=== PATIENT | male | born 1940 | race Two or more races ===

== ENCOUNTER → 2017-01-25 | Outpatient (CLI) | payer MEDICARE, OTHER ==
[~2017-01-25] VITALS: Ht 167.6 cm; Wt 70.8 kg
[~2017-01-25] MED LIST: BENAZEPRIL HCL10 MG ORAL; BENAZEPRIL HCL40 MG ORAL; BISACODYL5 MG ORAL; LANSOPRAZOLE30 MG ORAL; OMEPRAZOLE40 M1 ORAL; PPI; PROSTATE MED; TAMSULOSIN HCL0.4 MG ORAL
[2017-01-25 11:43] VITALS: BP 135/77
--- NOTE | 2017-01-25 19:19 | Consultation ---
DATE OF CONSULTATION: 01/25/2017 CONSULTING PHYSICIAN: Holden Dexter M.D. REFERRING PHYSICIAN: Sonu Bass M.D. CHIEF COMPLAINT: Weight loss and abdominal pain. HISTORY OF PRESENT ILLNESS: This is a very pleasant 76-year-old male, who was referred to us for evaluation of 10 pounds of weight loss over a year, abdominal pain after eating, and dark stools. No prior history of endoscopy or colonoscopy. PAST MEDICAL HISTORY: 1. Hypertension. 2. BPH. PAST SURGICAL HISTORY: Hernia repair. MEDICATIONS: Please see medication reconciliation list. SOCIAL HISTORY: The patient denies any tobacco, alcohol, or drug abuse. FAMILY HISTORY: Noncontributory. ALLERGIES: No known drug allergies. REVIEW OF SYSTEMS: A 10-point review of systems was performed and pertinent positives in history of present illness. PHYSICAL EXAMINATION: VITAL SIGNS: Temperature 98.4, blood pressure is 135/77, pulse 63, and respirations 20. Height is 5 feet 6 inches and weight 156. HEENT: Normocephalic and atraumatic. Sclerae anicteric. NECK: Supple. No evidence of lymphadenopathy. CARDIOVASCULAR: Regular rate and rhythm. Plus S1 and S2. LUNGS: Clear to auscultation bilaterally. ABDOMEN: Positive bowel sounds. Soft. Minimal tenderness to palpation in the epigastric area. No rebound. No guarding. No peritoneal sign. EXTREMITIES: No cyanosis. No edema. LABORATORY DATA: Labs not available. ASSESSMENT AND PLAN: The patient is a [id number] with epigastric abdominal pain, dark stools, and weight loss. No prior history of endoscopy or colonoscopy. Plan is to perform endoscopy and colonoscopy this coming Tuesday. If those studies negative, we will do laboratory work on the procedure day and also consider santillan CT. I want to thank Dr. Bass for this kind referral. Holden Dexter M.D. DR: JOHN JOB#: [id number] CC: Sonu Bass M.D.; Fax#: [phone]
== END | disposition home or self-care (01) ==
LOC: PAN 11:27
DX: R10.9 Unspecified abdominal pain (principal); R63.4 Abnormal weight loss
CPT/HCPCS: 99201

== ENCOUNTER → 2017-01-28 | Day surgery (SDC) | payer MEDICARE, OTHER ==
[~2017-01-28] VITALS: Ht 165.1 cm; Wt 70.8 kg
[2017-01-28] VITALS (11 sets, daily range): BP systolic 130–169; BP diastolic 70–81
[~2017-01-28] MED LIST changes: +LR 1000ml ONE; +Lidocaine 1% MPF 10mg/ml 5ml ONE; +Propofol 10mg/ml 20ml IV ONE; +ePHEDrine 50mg/ml Inj ONE
--- NOTE | 2017-01-28 08:00 | Short Stay Surgery H&P ---
History of Present Illness History of Present Illness Chief Complaint see dictation HPI Quincy Henley is a 76 year old male who was admitted on for Abdominal Pain, Weight Loss Patient History Allergies: Coded Allergies: No Known Allergies (Unverified , 01/25/17) PAST MEDICAL HISTORY: Past Surgeries: Social History: Medication History Scheduled Benazepril Hcl* (Benazepril Hcl*), Unknown Dose ORAL DAILY, (Reported) Benazepril Hcl* (Benazepril Hcl*), 40 MG ORAL DAILY, (Reported) Bisacodyl* (Dulcolax*), 5 MG ORAL DAILY, (Reported) Omeprazole (Omeprazole), 40 MG ORAL DAILY, (Reported) Tamsulosin Hcl (Tamsulosin Hcl*), 0.4 MG ORAL BEDTIME, (Reported) Physical Exam Vital Signs Last Vital Signs Date Time Temp Pulse Resp B/P Pulse Ox O2 Delivery O2 Flow Rate FiO2 01/28/17 07:38 97.9 83 20 169/81 99 Room Air Plan Attestation Are the patient's medical conditions optimized for surgery? EARL TUBBS Jan 28, 2017 08:00
--- NOTE | 2017-01-28 08:00 | Pre-Procedure Note/Attestation ---
Pre-Procedure Note/Attestation Complete Prior to Procedure Planned Procedure: not applicable Procedure Narrative: egd/colon Indications for Procedure Pre-Operative Diagnosis: wt loss Attestation I attest that I discussed the nature of the procedure; its benefits; risks and complications; and alternatives (and the risks and benefits of such alternatives ), prior to the procedure, with the patient (or the patient's legal food products sales representative). I attest that, if there was a reasonable possibility of needing a blood transfusion, the patient (or the patient's legal food products sales representative) was given the [facility] standardized written summary, pursuant to the Campbell Severo Blood Safety Act ([place] Health and Safety Code # 1645, as amended). I attest that I re-evaluated the patient just prior to the surgery and that there has been no change in the patient's H&P, except as documented below: EARL TUBBS Jan 28, 2017 08:00
--- NOTE | 2017-01-28 08:19 | Anethesia Preoperative Eval ---
Anesthesia Pre-op PMH/ROS General Date of Evaluation: Jan 28, 2017 Time of Evaluation: 08:00 Anesthesiologist: marjorie ASA Score: ASA 2 Mallampati Score Class I : Soft palate, uvula, fauces, pillars visible Class II: Soft palate, uvula, fauces visible Class III: Soft palate, base of uvula visible Class IV: Only hard plate visible Mallampati Classification: Class II Anesthesia History: none Family History: no anesthesia problems Allergies: Coded Allergies: No Known Allergies (Unverified , 01/25/17) Medications: see eMAR Past Medical History Cardiovascular: Reports: HTN Pulmonary: Denies: COPD, BURAK, asthma, other Gastrointestinal/Genitourinary: Reports: GERD Neurologic/Psychiatric: Denies: CVA, TIA, dementia, depression/anxiety, other Endocrine: Denies: DM, hypothyroidism, other, steroids HEENT: Denies: ALTURAS (L), ALTURAS (R), cataract (L), cataract (R), glaucoma, other Hematology/Immune: Denies: DVT, anemia, bleeding disorder, other PMH Narrative: weight loss PSxH Narrative: hernia repair Anesthesia Pre-op Phys. Exam Physician Exam Last Vital Signs Date Time Temp Pulse Resp B/P Pulse Ox O2 Delivery O2 Flow Rate FiO2 01/28/17 07:38 97.9 83 20 169/81 99 Room Air Constitutional: NAD Neurologic: CN 2-12 intact Cardiovascular: RRR, other - PAC Respiratory: CTA Gastrointestinal: S/NT/ND Airway Exam Mallampati Classification 3 Mallampati Score: Class II MO: full ROM: full Dentures: no lower, no upper Anesthesia Pre-op A/P Studies Pre-op Studies: EKG - SR with pa Risk Assessment & Plan Plan: mac Status Change Before Surgery: No Pre-Antibiotics Drug: none [place],NBA TOBACCO DIPPER Jan 28, 2017 08:19
--- NOTE | 2017-01-28 08:29 | Endoscopy Procedure Note ---
Endoscopy Procedure Note Indication for Procedure: wt loss Procedures Performed: EGD, colonoscopy Operative Findings/Diagnosis: gastritis, HH 2 polyps Specimen: yes Pt Tolerated Procedure Well: Yes Estimated Blood Loss: none Anesthesiologist: jesus Anesthesia: MAC Implant(s) used?: No 50 yrs or older w/o bx or poly: No 10yrs. F/U not recommended: Yes If not recommended, why?: Above average risk 10 yrs. F/U needed: Yes 18 years or older w/prev. colo: No EARL TUBBS Jan 28, 2017 08:29
--- NOTE | 2017-01-28 08:41 | Immediate Post-Op Evaluation ---
Immediate Post-Op Evalulation Immediate Post-Op Evalulation Procedure: EGD/Colonoscopy Date of Evaluation: Jan 28, 2017 Time of Evaluation: 08:38 IV Fluids: 500 Blood Pressure Systolic: 131 Blood Pressure Diastolic: 70 Pulse Rate: 86 Respiratory Rate: 14 O2 Sat by Pulse Oximetry: 100 Temperature (Fahrenheit): 97.5 Nausea: No Vomiting: No Complications none Patient Status: awake, reacts, patent Hydration Status: adequate Drug: none NBA ALCANTARA CRNA Jan 28, 2017 08:41
--- NOTE | 2017-01-28 09:11 | 48 Hour Post Anesthesia Eval ---
Post Anesthesia Evaluation Procedure: EGD/Colonoscopy Date of Evaluation: Jan 28, 2017 Time of Evaluation: 09:11 Blood Pressure Systolic: 132 0: 87 Pulse Rate: 74 O2 Sat by Pulse Oximetry: 99 Airway: patent Nausea: No Vomiting: No Hydration Status: adequate Mental Status/LOC: patient returned to baseline Post-Anesthesia Complications: none Follow-up care needed: N/A NBA ALCANTARA CRNA Jan 28, 2017 09:11
[2017-01-28 10:10] LABS: THYROID STIMULATING HORMONE 2.89 uIU/mL (0.300-4.500)
--- NOTE | 2017-01-28 13:54 | Diagnostic Imaging Report ---
Indication: Abdominal pain Technique: Continuous helical transaxial imaging of the abdomen and pelvis was obtained from the lung bases to the pubic symphysis during intravenous contrast administration. Coronal 2-D reformats were also obtained. Study obtained in a Siemens sensation [address] Total Dose length Product (DLP): [address] Dose Index Volume (CTDIvol): 17, 10 mGy Comparison: None Findings: Lung bases are clear. There is a hiatal hernia present. Liver and spleen unremarkable. Gallbladder is unremarkable. No adrenal mass seen. Pancreas is unremarkable. 5 cm and 2.5 cm cysts noted within the right kidney at the upper pole. Arterial vascular calcifications involving aorta noted. Urinary bladder is unremarkable. Prostate is enlarged measures about 4.8 x 5.3 x 6.0 cm. There is a right renal hernia containing fat. The appendix is seen and appears normal. Note that the cecum is mobile and displaced superomedially. The appendix is therefore seen at about the level the right kidney. Mild anterolisthesis L4 and 5 demonstrated. There is narrowing of intervertebral discs and accompanying endplate osteophyte and vacuum formation. Hypertrophied facet joints also demonstrated.. Impression: Irregularity and enlargement of the prostate gland. Clinical correlation recommended. Small right inguinal hernia containing fat. Normal appendix Note there is superior and medial location of the cecum, sign of partial malrotation. Atherosclerotic vascular disease Cysts within the right kidney. Spondylosis as described above. The CT scanner at [facility] is accredited by the [employer] and the scans are performed using protocols designed to limit radiation exposure to as low as reasonably achievable to attain images of sufficient resolution adequate for diagnostic evaluation.
--- NOTE | 2017-01-28 16:28 | Procedure Note ---
DATE OF PROCEDURE: 01/28/2017 SURGEON: Holden Dexter M.D. PROCEDURE: Upper endoscopy with biopsy and colonoscopy with biopsy with snare polypectomy. ANESTHESIOLOGIST: Zo Mathis CRNA. INSTRUMENT: Olympus adult flexible upper endoscope and colonoscope. INDICATION: Weight loss. REASON FOR PROCEDURE: The procedure, risks, benefits, and possible consequences, including hemorrhage, aspiration, perforation and infection, and alternative treatments, were explained to the patient/legal guardian by Dr. Holden Dexter and the patient/legal guardian understood and accepted these risks. DESCRIPTION OF PROCEDURE: After informed consent was obtained and the patient was adequately sedated, Olympus upper endoscope was advanced from mouth into the second portion of the duodenum and retroflexion was performed in the stomach. The patient had evidence of small hiatal hernia. In the stomach, there was diffuse gastritis. Random biopsy from antrum was obtained to rule out H. pylori infection. At this time, the upper endoscope was retrieved and the patient was turned over for colonoscopy. First, a rectal exam performed, which showed positive for large internal hemorrhoids. Then, the scope was advanced from the rectum into the cecum documented by appendiceal orifice, ileocecal valve, and right upper quadrant palpation. Quality of prep was very poor in the cecum. We had a hard time. We had to wash so many times to get the cecum visible. There was one sessile polyp in the cecum measured roughly about 5 mm removed with the cold snare polypectomy technique. There was another diminutive polyp in the transverse colon, removed with the cold biopsy forceps technique. There was no obvious mass, tumor, or any other pathology seen. Retroflexion of rectum showed evidence of relatively large internal hemorrhoids. SUMMARY OF FINDINGS: 1. Gastritis, status post biopsy. 2. Small hiatal hernia. 3. Two colonic polyps removed, see above for details. 4. Internal hemorrhoids. RECOMMENDATIONS: 1. Follow up biopsy results and treat accordingly. 2. The patient will need a CT of the chest, abdomen, and pelvis to rule out for evaluation of cause of weight loss. 3. We are going to send tumor markers today and thyroid panel today. I want to thank Dr. Sonu Bass for this kind referral. Holden Rosales Dexter DR: SASHA JOB#: [id number] CC: Rosales Judd
--- NOTE | 2017-02-01 00:15 | Cardiology Report ---
APPROVED REPORT EKG Measurement Heart [id number] Atrial fibrillation Abnormal ECG
== END | disposition home or self-care (01) ==
LOC: GAS 06:34
DX: R10.9 Unspecified abdominal pain (principal); R63.4 Abnormal weight loss; D12.0 Benign neoplasm of cecum; D12.3 Benign neoplasm of transverse colon; K64.8 Other hemorrhoids; K29.50 Unspecified chronic gastritis without bleeding; B96.81 Helicobacter pylori [H. pylori] as the cause of diseases classified elsewhere; K44.9 Diaphragmatic hernia without obstruction or gangrene; I10 Essential (primary) hypertension; K21.9 Gastro-esophageal reflux disease without esophagitis
CPT/HCPCS: 36415; 43239; 45380; 45385; 74177; 82150; 82378; 83690; 84439; 84443; 86301; 93005; J2704; J7120; Q9967; 94003; 94150

== ENCOUNTER 2017-01-30 06:29 | Emergency (ER) | payer MEDICARE, OTHER ==
[~2017-01-30] VITALS: Ht 162.6 cm; Wt 70.8 kg
[~2017-01-30 06:29] MED LIST changes: -LANSOPRAZOLE30 MG ORAL; -LR 1000ml ONE; -Lidocaine 1% MPF 10mg/ml 5ml ONE; -Propofol 10mg/ml 20ml IV ONE; -ePHEDrine 50mg/ml Inj ONE
[2017-01-30 06:48] VITALS: BP 160/71
--- NOTE | 2017-01-30 07:08 | Emergency Room Report ---
History of Present Illness General Chief Complaint: Abdominal Pain Source: Patient, Family Member Present Illness HPI 76 YOM walk-in patient with 1 week constant central abd pain. No relief with "antacid." Cant sleep at night. No assoc fever/chills, nausea/vomiting. Associated with weight loss, diarrhea. Assoc with 1 month dysuria w/out polyuria. Had colonoscopy and endocscopy [address] Dexter - review of EMR shows results of "gastritis, polyps." No other noted significant findings. Denies foreign travel, sick contacts. Appetite ok. Allergies: Coded Allergies: No Known Allergies (Unverified , 01/25/17) Patient History Past Medical History: HTN Past Surgical History: other - left hernia repair 5 years ago Pertinent Family History: none Social History: Denies: alcohol use, drug use, smoking Immunizations: UTD Nursing Documentation-PMH Hx Cardiac Problems: Yes Hx Hypertension: Yes Hx Cancer: No Hx Gastrointestinal Problems: No Hx Neurological Problems: No Review of Systems All Other Systems: negative except mentioned in HPI Physical Exam Vital Signs Date Time Temp Pulse Resp B/P Pulse Ox O2 Delivery O2 Flow Rate FiO2 01/30/17 06:35 97.9 78 16 145/76 97 Room Air Sp02 EP Interpretation: reviewed, normal General Appearance: normal inspection, well appearing, no apparent distress, alert, GCS 15, non-toxic, other - well appearing elderly gentleman Head: normocephalic, atraumatic Eyes: bilateral eye EOMI, bilateral eye PERRL ENT: normal ENT inspection, hearing grossly normal, normal voice Neck: normal inspection, full range of motion, supple, no bony tend Respiratory: normal inspection, lungs clear, normal breath sounds, no respiratory distress, no retraction, no wheezing Cardiovascular #1: regular rate, rhythm, no edema Gastrointestinal: normal inspection, normal bowel sounds, non tender, soft, no mass, no organomegaly, non-distended, no guarding, no hernia, no pulsatile mass , no rebound Genitourinary: no CVA tenderness Musculoskeletal: normal inspection, back normal, normal range of motion, Mitul' s Sign negative Neurologic: normal inspection, alert, oriented x3, responsive, territory manager III-XII nml as tested, motor strength/tone normal, speech normal Psychiatric: normal inspection, judgement/insight normal, mood/affect normal Skin: normal inspection, normal color, no rash Lymphatic: normal inspection Medical Decision Making Diagnostic Impression: Primary Impression: Abdominal pain Qualified Codes: R10.33 - Periumbilical pain Additional Impressions: Gastritis Qualified Codes: K29.50 - Unspecified chronic gastritis without bleeding ASAF (acute kidney injury) ER Course 76 YOM with 1 week central abd pain. VSS. Afebrile. Likely gastritis given recent endoscopy/colonoscopy Does not appear septic Unlikely ACS given 1 week but will check ECG, troponin Will do basic labs, tx for gastritis with IV H2 graham If no improvement, will consider CT, GI Cx EKG Diagnostic Results Rate: other - Atrial fib without RVR Rhythm Strip Diag. Results EP Interpretation: yes Rate: 75 Rhythm: no PVC's, no ectopy Reevaluation Time: 10:18 Last Vital Signs Date Time Temp Pulse Resp B/P Pulse Ox O2 Delivery O2 Flow Rate FiO2 01/30/17 06:48 97.9 89 15 160/71 99 Room Air Status: improved Reevaluation Impression Labs: No leuks. H&H stable. Lipase normal. Mild ASAF. UA negative for UTI ECG atrial fib without RVR. Troponin 0. CT c/w gastritis. No other acute abd/pelvic pathology Likely known gastritis. Feels better after medication. Hydrated IVF for mild ASAF Will give stronger PPI rx and recommend GI/PMD followup DC home Disposition: HOME, SELF-CARE SOFÍA SCHMID M.D. Jan 30, 2017 07:07
[2017-01-30] MEDS ORDERED: Famotidine 20 MG/ 2ML VIAL IVP ONE (07:15)
[2017-01-30] MEDS ORDERED: Mylanta II UD 30ml ORAL ONE (07:15)
[2017-01-30 07:46] LABS: BASOPHILS % (AUTO) 0.9 % (0.0-2.0); EOSINOPHILS % (AUTO) 2.4 % (0.0-3.0); LYMPHOCYTES % (AUTO) 42.5 % (20.0-45.0); MEAN CORPUSCULAR HEMOGLOBIN 20.2 PG (27.0-31.0); MEAN CORPUSCULAR HGB CONC 29.8 G/DL (32.0-36.0); MEAN CORPUSCULAR VOLUME 68 FL (80-99); MEAN PLATELET VOLUME 9.1 FL (6.5-10.1); MONOCYTES % (AUTO) 8.1 % (1.0-10.0); NEUTROPHILS % (AUTO) 46.1 % (45.0-75.0); PLATELET COUNT 299 K/UL (150-450); RED BLOOD COUNT 6.17 M/UL (4.70-6.10); RED CELL DISTRIBUTION WIDTH 13.6 % (11.6-14.8); WHITE BLOOD COUNT 5.3 K/UL (4.8-10.8)
[2017-01-30 08:03] LABS: ALANINE AMINOTRANSFERASE 14 U/L (3-41); ALBUMIN/GLOBULIN RATIO 1.3 (1.0-2.7); ANION GAP 18 (5-15); ASPARTATE AMINO TRANSFERASE 48 U/L (5-40); CALCIUM 10.1 mg/dL (8.6-10.2); CARBON DIOXIDE 25 mEQ/L (20-30); CHLORIDE 98 mEQ/L (98-107); CREATININE 1.4 mg/dL (0.7-1.2); HEMOLYSIS 54; LIPASE 50 U/L (< 60); POTASSIUM 4.5 mEQ/L (3.4-4.9); SODIUM 141 mEQ/L (135-145); TOTAL PROTEIN 7.6 g/dL (6.6-8.7)
[2017-01-30 08:07] LABS: TROPONIN I < 0.30 ng/mL (<=0.30)
[2017-01-30 09:10] LABS: APPEARANCE,URINE CLEAR; KETONES,URINE NEGATIVE (NEGATIVE); LEUKOCYTE ESTERASE ,URINE NEGATIVE (NEGATIVE); NITRITE,URINE NEGATIVE (NEGATIVE); PH,URINE 6 (4.5-8.0); PROTEIN,URINE 2+ (NEGATIVE); UROBILINOGEN,URINE NORMAL MG/DL (0.0-1.0)
[2017-01-30 09:34] LABS: BACTERIA,URINE OCCASIONAL /HPF; RBC,URINE 0-2 /HPF (0 - 0); SQUAMOUS EPITHELIAL CELL,UR OCCASIONAL /LPF (NONE/OCC); WBC,URINE 0-2 /HPF (0 - 0)
--- NOTE | 2017-01-30 10:18 | Diagnostic Imaging Report ---
Indication: Abdominal pain. Comparison: 01/28/17. Technique: Utilizing a multislice CT scanner, a CT of the abdomen and pelvis was performed without intravenous contrast. All CT scans at this facility use dose modulation, iterative reconstruction, and/or weight based dosing when appropriate to reduce radiation dose to as low as reasonably achievable. CTDIvol (mGy): 12 DLP (mGy-cm): 594 Findings: Lack of intravenous contrast limits evaluation of the visceral and vascular structures. The visualized lung bases exhibit mild atelectasis or scarring The liver is unremarkable. The gallbladder is unremarkable. The pancreas, spleen and adrenal glands are unremarkable. The stomach is decompressed and not optimally evaluated but exhibits moderate wall thickening which may reflect sequela of reported gastritis. No calculus is identified within either kidney, along the expected course of the ureters or within the urinary bladder. There is no evidence of hydronephrosis or asymmetric perirenal inflammatory change. Cysts in the right upper kidney measuring up to 4.7 cm in size noted. The urinary bladder exhibits moderate wall thickening. The prostate is moderately enlarged, protruding into the floor of the urinary bladder. Chronic bladder outlet obstruction or cystitis should be considered. The visualized bowel are grossly unremarkable. There is no evidence of obstruction. There is no extraluminal gas or fluid. Normal appendix. There are no enlarged lymph nodes. There is calcified atherosclerotic disease of the the abdominal aorta. Mild multilevel thoracolumbar spondylosis noted. Impression: 1. No evidence of acute intra-abdominal or pelvic pathology. 2. Decompressed stomach with apparent wall thickening which may reflect sequela of reported gastritis. 3. Large right renal cysts. No hydronephrosis. 4. Enlarged prostate gland. Bladder wall thickening. Correlate with physical exam findings and PSA levels. Consider chronic bladder outlet obstruction or cystitis.
[2017-01-30] MEDS ORDERED: LANSOPRAZOLE30 MG ORAL (10:22)
[2017-01-30 10:46] VITALS: BP 144/78
[2017-01-30 10:49] VITALS: BP 144/78
--- NOTE | 2017-02-01 00:02 | Cardiology Report ---
APPROVED REPORT EKG Measurement Heart [id number] Atrial fibrillation with occasional Nonspecific ST abnormality Prolonged QT Abnormal ECG
== END 2017-01-30 10:49 | disposition home or self-care (01) ==
LOC: EMR 07:07
DX: R10.33 Periumbilical pain (principal); K29.70 Gastritis, unspecified, without bleeding; N17.9 Acute kidney failure, unspecified; I10 Essential (primary) hypertension
CPT/HCPCS: 36415; 74176; 80053; 81003; 83690; 84484; 85025; 93005; 96374; 99284; S0028

== ENCOUNTER → 2017-02-01 | Outpatient (CLI) | payer MEDICARE, OTHER ==
[~2017-02-01] MED LIST changes: +LANSOPRAZOLE30 MG ORAL
--- NOTE | 2017-02-01 11:03 | GI Progress Note ---
Assessment/Plan Problems: (1) Abdominal pain ICD Codes: R10.9 - Unspecified abdominal pain SNOMED: 12372391 (2) S/P colonoscopic polypectomy ICD Codes: Z98.890 - Other specified postprocedural states SNOMED: 71289287, 116739672, 094238908, 794079063243 (3) Constipated ICD Codes: K59.00 - Constipation, unspecified SNOMED: 73236861 Status: stable Status Narrative Seen with Dr. Dexter. Assessment/Plan EGD/colonoscopy reviewed with patient. APCT reviewed >> No evidence of acute intra-abdominal or pelvic pathology. Rx miralax + colace RTC prn The patient was seen and examined at bedside and all new and available data was reviewed in the patients chart. I agree with the above findings, impression and plan. (Patient seen earlier today. Signature stamp does not reflect patient encounter time.). -Holden Dexter MD Subjective Subjective abdominal pain, slight improvement LLQ admitted to ER 2 days ago at [facility] Objective T 97.6 BP 124/79 P 78 99 RA General Appearance: no apparent distress, alert, overweight Cardiovascular: normal rate Respiratory/Chest: normal breath sounds, no respiratory distress Abdominal Exam: normal bowel sounds, non tender, soft Extremities: normal range of motion Objective Endoscopy Procedure Note Indication for Procedure: wt loss Procedures Performed: EGD, colonoscopy Operative Findings/Diagnosis: gastritis, HH 2 polyps HOLDEN DEXTER - Jan 28, 2017 08:29 Soumya Mcclendon N.PJean-Pierre Feb 01, 2017 11:03 HOLDEN DEXTER Feb 04, 2017 09:42
[2017-02-03 09:03] VITALS: BP 129/79
== END | disposition home or self-care (01) ==
LOC: PAN 10:11
DX: R10.9 Unspecified abdominal pain (principal); K59.00 Constipation, unspecified; Z98.890 Other specified postprocedural states; K63.5 Polyp of colon; K29.70 Gastritis, unspecified, without bleeding
CPT/HCPCS: 99211

== ENCOUNTER → 2017-02-22 | Outpatient (CLI) | payer MEDICARE, OTHER ==
[~2017-02-22] MED LIST changes: +COLACE100 MG ORAL; +MIRALAX17 G2 ORAL
[2017-02-22 11:24] VITALS: BP_SYST 111; BP_SYST 131; BP_DIAS 61; BP_DIAS 75
--- NOTE | 2017-02-23 15:26 | GI Progress Note ---
Assessment/Plan Problems: (1) H. pylori infection ICD Codes: A04.8 - Other specified bacterial intestinal infections (2) Weight loss ICD Codes: R63.4 - Abnormal weight loss SNOMED: 89983324, 964714173 (3) Malnutrition ICD Codes: E46 - Unspecified protein-calorie malnutrition SNOMED: 7618506 (4) Abdominal pain ICD Codes: R10.9 - Unspecified abdominal pain SNOMED: 80272207 (5) S/P colonoscopic polypectomy ICD Codes: Z98.890 - Other specified postprocedural states SNOMED: 04310643, 122253713, 150763404, 723652627881 (6) Constipated ICD Codes: K59.00 - Constipation, unspecified SNOMED: 24788147 Status: stable Status Narrative Seen with Dr. Dexter. Assessment/Plan EGD/colonoscopy reviewed with patient on previous admission. APCT reviewed >> No evidence of acute intra-abdominal or pelvic pathology. H Pylori positive >> Tx with amoxicillin + biaxin + omeprazole cont miralax + colace RTC x 3 months for retest repeat colon x 3 years Subjective Subjective abdominal pain constipation >> colace, miralax, dulcolax not helping weight loss Objective T 97.2 BP 131/75 P 89 General Appearance: no apparent distress, alert Cardiovascular: normal rate Respiratory/Chest: normal breath sounds, no respiratory distress Abdominal Exam: normal bowel sounds, non tender, soft Extremities: normal range of motion Objective Endoscopy Procedure Note Indication for Procedure: wt loss Procedures Performed: EGD, colonoscopy Operative Findings/Diagnosis: gastritis, HH 2 polyps EARL DEXTER - Jan 28, 2017 08:29 Soumya Mcclendon NJean-PierrePJeanP-ierre Feb 23, 2017 15:26
== END | disposition home or self-care (01) ==
LOC: PAN 11:07
DX: A04.8 Other specified bacterial intestinal infections (principal); R63.4 Abnormal weight loss; E46 Unspecified protein-calorie malnutrition; R10.9 Unspecified abdominal pain; Z98.890 Other specified postprocedural states; K59.00 Constipation, unspecified; Z86.010 Personal history of colon polyps
CPT/HCPCS: 99211

== ENCOUNTER 2017-03-23 14:24 | Outpatient (CLI) | payer MEDICARE, OTHER ==
--- NOTE | 2017-03-23 15:00 | GI Progress Note ---
Assessment/Plan Problems: (1) Constipated ICD Codes: K59.00 - Constipation, unspecified SNOMED: 79926520 (2) H. pylori infection ICD Codes: A04.8 - Other specified bacterial intestinal infections (3) Abdominal pain ICD Codes: R10.9 - Unspecified abdominal pain SNOMED: 50951075 (4) Malnutrition ICD Codes: E46 - Unspecified protein-calorie malnutrition SNOMED: 9336458 (5) Weight loss ICD Codes: R63.4 - Abnormal weight loss SNOMED: 90316012, 459391655 (6) S/P colonoscopic polypectomy ICD Codes: Z98.890 - Other specified postprocedural states SNOMED: 45117999, 050967153, 487794028, 944082932766 Status: stable Status Narrative Seen with Dr. Dexter. Assessment/Plan EGD/COLONOSCOPY SUMMARY OF FINDINGS: 1. Gastritis, status post biopsy. 2. Small hiatal hernia. 3. Two colonic polyps removed, see above for details. 4. Internal hemorrhoids. 5. H. Pylori positive 6. Tumor markers and thyroid panel >> unremarkable Service Date: 01/30/17 Procedure: CT Abdomen Pelvis WO Contrast Indication: Abdominal pain. Impression: 1. No evidence of acute intra-abdominal or pelvic pathology. 2. Decompressed stomach with apparent wall thickening which may reflect sequela of reported gastritis. 3. Large right renal cysts. No hydronephrosis. 4. Enlarged prostate gland. Bladder wall thickening. Correlate with physical exam findings and PSA levels. Consider chronic bladder outlet obstruction or cystitis. RECOMMENDATIONS: Defer HP treatment for now given Abx has interaction with Amiodarone which the patient is currently taking. Rx Amitiza RTC x 3 months, we will consider HP tx at this time. Subjective Gastrointestinal/Abdominal: Reports: no symptoms Objective T 97.8 BP 136/83 P 75 95 RA General Appearance: no apparent distress, alert Cardiovascular: normal rate Respiratory/Chest: normal breath sounds, no respiratory distress Abdominal Exam: normal bowel sounds, non tender, soft Extremities: normal range of motion Soumya Mcclendon N.PJean-Pierre March 23, 2017 15:00
[2017-03-23] MEDS ORDERED: ASPIR 8181 MG ORAL (15:03)
[2017-03-23] MEDS ORDERED: XARELTO10 MG ORAL (15:03)
[2017-03-23] MEDS ORDERED: LISINOPRIL2.5 MG ORAL (15:03)
[2017-03-23] MEDS ORDERED: PLAVIX75 MG ORAL (15:03)
[2017-03-23] MEDS ORDERED: AMIODARONE HCL400 M1 ORAL (15:03)
[2017-03-23] MEDS ORDERED: PROTONIX40 MG ORAL (15:03)
== END 2017-03-23 15:00 | disposition home or self-care (01) ==
LOC: PAN 14:24
DX: K59.00 Constipation, unspecified (principal); A04.8 Other specified bacterial intestinal infections; R10.9 Unspecified abdominal pain; E46 Unspecified protein-calorie malnutrition; R63.4 Abnormal weight loss; Z98.890 Other specified postprocedural states; Z86.010 Personal history of colon polyps
CPT/HCPCS: 99211

== ENCOUNTER 2017-05-27 11:04 | Outpatient (CLI) | payer MEDICARE, OTHER ==
[~2017-05-27 11:04] MED LIST changes: +AMIODARONE HCL400 M1 ORAL; +ASPIR 8181 MG ORAL; +LISINOPRIL2.5 MG ORAL; +PLAVIX75 MG ORAL; +PROTONIX40 MG ORAL; +XARELTO10 MG ORAL
--- NOTE | 2017-05-27 16:10 | Diagnostic Imaging Report ---
Indication: Cough Technique: 2 views of the chest Comparison: none. Findings: Lungs and pleural spaces are clear. Heart size is normal. Bones are unremarkable.. Impression: No acute process
== END 2017-05-27 12:04 | disposition home or self-care (01) ==
LOC: RAD 11:04
DX: Z01.818 Encounter for other preprocedural examination (principal); I10 Essential (primary) hypertension; R05 Cough
CPT/HCPCS: 71020

== ENCOUNTER 2017-08-12 09:38 | Inpatient (IN) | payer MEDICARE, OTHER ==
[~2017-08-12] VITALS: Ht 165.1 cm; Wt 68.0 kg
[2017-08-12 10:06] VITALS: BP 162/77
--- NOTE | 2017-08-12 10:12 | Emergency Room Report ---
History of Present Illness General Chief Complaint: Gastrointestinal Bleed Source: Patient Present Illness HPI 76-year-old male history of CAD on Plavix, history of A. fib currently in sinus rhythm on several to, hypertension, presenting with rectal bleeding that started 10 minutes prior to arrival, bright red blood per rectum, moderate amount. Slight lightheadedness. Slight abdominal pain that has resolved. No nausea or vomiting. Patient had recent endoscopy and colonoscopy performed this past January which showed polyps and gastritis. Denies fever or chills. No recent travel Allergies: Coded Allergies: No Known Allergies (Unverified , 01/25/17) Patient History Past Medical History: see triage record Past Surgical History: none Pertinent Family History: none Reviewed Nursing Documentation: PMH: Agreed, PSxH: Agreed Nursing Documentation-PMH Hx Cardiac Problems: Yes Hx Hypertension: Yes Hx Cancer: No Hx Gastrointestinal Problems: Yes Hx Neurological Problems: No Review of Systems All Other Systems: negative except mentioned in HPI Physical Exam Vital Signs Date Time Temp Pulse Resp B/P (MAP) Pulse Ox O2 Delivery O2 Flow Rate FiO2 08/12/17 09:40 97.9 94 20 190/95 99 Room Air Sp02 EP Interpretation: reviewed, normal General Appearance: normal inspection, well appearing, no apparent distress, alert, GCS 15, non-toxic, other - , Cooperative not in acute distress Head: normocephalic, atraumatic Eyes: bilateral eye normal inspection, bilateral eye PERRL, bilateral eye EOMI ENT: normal ENT inspection, normal pharynx, normal voice, moist mucus membranes Neck: normal inspection, full range of motion, supple Respiratory: normal inspection, lungs clear, normal breath sounds, no respiratory distress, no retraction, no wheezing, speaking full sentences, chest symmetrical Cardiovascular #1: normal inspection, regular rate, rhythm, no edema, normal capillary refill Cardiovascular #2: 2+ radial (R), 2+ radial (L) Gastrointestinal: soft, non-distended, no guarding, other - Soft nontender all quadrants abdomen Rectal: other - +BRBPR, blood in rectal vault, no brisk bleeding Genitourinary: no CVA tenderness Musculoskeletal: normal inspection, back normal, normal range of motion, non- tender Neurologic: normal inspection, alert, oriented x3, responsive, motor strength/ tone normal, sensory intact, normal gait, speech normal Psychiatric: normal inspection, judgement/insight normal, memory normal Skin: normal inspection, normal color, no rash, warm/dry, well hydrated, normal turgor Medical Decision Making Diagnostic Impression: Primary Impression: Gastrointestinal hemorrhage ER Course 76-year-old male with GI bleed, lower On anticoagulation DDX: Diverticulosis, diverticulitis, hemorrhoids, AVM, mass Plan: Obtain labs, ua, EKG, coags At this time abdomen is very soft nontender will hold imaging for now ER course: Patient has been monitored during ED stay, no tachycardia no hypotension, current blood pressure is 162/77 review of charts - last h/h in february 09.5 hgb today is 11.5 trop noted to be 0.1 however likely due to demand ischemia, will not heparinize patient at this time due to GIB has had 1 bloody BM in ED states rectal pain but minimal abd pain, abd is nontender on exam VS remain normal and stable. admit to tele Disposition: Patient is to be admitted to telemetry D/W hospitalist Patient was signed out to Dr Pedraza, who has accepted patient for admission. Attempted call to GI but no call back Please note that this Emergency Department Report was dictated using [employer] software, occasionally this can lead to erroneous entry secondary to interpretation by the dictation equipment. EKG Diagnostic Results EP Interpretation: Yes Rate: normal Rhythm: NSR ST Segments: No acute changes ASA given to patient: No Rhythm Strip EP Interpretation: Yes Rate: 66 Rhythm: NSR, no PVCs, no ectopy Laboratory Tests Test 08/12/17 09:55 08/12/17 10:40 White Blood Count 6.8 K/UL (4.8-10.8) Red Blood Count 5.63 M/UL (4.70-6.10) Hemoglobin 11.5 G/DL (14.2-18.0) L Hematocrit 38.9 % (42.0-52.0) L Mean Corpuscular Volume 69 FL (80-99) L Mean Corpuscular Hemoglobin 20.5 PG (27.0-31.0) L Mean Corpuscular Hemoglobin Concent 29.6 G/DL (32.0-36.0) L Red Cell Distribution Width 13.2 % (11.6-14.8) Platelet Count 310 K/UL (150-450) Mean Platelet Volume 7.4 FL (6.5-10.1) Neutrophils (%) (Auto) 45.8 % (45.0-75.0) Lymphocytes (%) (Auto) 42.3 % (20.0-45.0) Monocytes (%) (Auto) 6.8 % (1.0-10.0) Eosinophils (%) (Auto) 4.2 % (0.0-3.0) H Basophils (%) (Auto) 0.9 % (0.0-2.0) Prothrombin Time 9.8 SEC (9.30-11.50) Prothrombin Time INR 0.9 (0.9-1.1) PTT 25 SEC (23-33) Sodium Level 142 MMOL/L (136-145) Potassium Level 4.7 MMOL/L (3.5-5.1) Chloride Level 107 MMOL/L (98-107) Carbon Dioxide Level 27 MMOL/L (21-32) Anion Gap 8 (5-15) Blood Urea Nitrogen 24 mg/dL (7-18) H Creatinine 1.6 MG/DL (0.55-1.30) H Estimate Glomerular Filtration Rate mL/min (>60) Glucose Level 103 MG/DL (74-106) Calcium Level 9.3 MG/DL (8.5-10.1) Total Bilirubin 0.5 MG/DL (0.2-1.0) Aspartate Amino Transferase (AST) 51 U/L (15-37) H Alanine Aminotransferase (ALT) 27 U/L (12-78) Alkaline Phosphatase 73 U/L (46-116) Troponin I 0.153 ng/mL (0.000-0.056) Total Protein 7.5 G/DL (6.4-8.2) Albumin 3.8 G/DL (3.4-5.0) Globulin 3.7 g/dL Albumin/Globulin Ratio 1.0 (1.0-2.7) Lipase 197 U/L (73-393) Last Vital Signs Date Time Temp Pulse Resp B/P (MAP) Pulse Ox O2 Delivery O2 Flow Rate FiO2 08/12/17 09:40 97.9 94 20 190/95 99 Room Air Disposition: ADMITTED INPATIENT Condition: Serious Tripp Marquez M.D. Aug 12, 2017 10:12
[2017-08-12 10:34] LABS: BASOPHILS % (AUTO) 0.9 % (0.0-2.0); EOSINOPHILS % (AUTO) 4.2 % (0.0-3.0); LYMPHOCYTES % (AUTO) 42.3 % (20.0-45.0); MEAN CORPUSCULAR HEMOGLOBIN 20.5 PG (27.0-31.0); MEAN CORPUSCULAR HGB CONC 29.6 G/DL (32.0-36.0); MEAN CORPUSCULAR VOLUME 69 FL (80-99); MEAN PLATELET VOLUME 7.4 FL (6.5-10.1); MONOCYTES % (AUTO) 6.8 % (1.0-10.0); NEUTROPHILS % (AUTO) 45.8 % (45.0-75.0); PLATELET COUNT 310 K/UL (150-450); RED BLOOD COUNT 5.63 M/UL (4.70-6.10); RED CELL DISTRIBUTION WIDTH 13.2 % (11.6-14.8); WHITE BLOOD COUNT 6.8 K/UL (4.8-10.8)
[2017-08-12 10:46] LABS: INR 0.9 (0.9-1.1); PROTHROMBIN TIME 9.8 SEC (9.30-11.50)
[2017-08-12 11:02] LABS: ALANINE AMINOTRANSFERASE 27 U/L (12-78); ANION GAP 8 (5-15); ASPARTATE AMINO TRANSFERASE 51 U/L (15-37); CALCIUM 9.3 MG/DL (8.5-10.1); CARBON DIOXIDE 27 MMOL/L (21-32); CHLORIDE 107 MMOL/L (98-107); CREATININE 1.6 MG/DL (0.55-1.30); LIPASE 197 U/L (73-393); POTASSIUM 4.7 MMOL/L (3.5-5.1); SODIUM 142 MMOL/L (136-145); TOTAL PROTEIN 7.5 G/DL (6.4-8.2)
[2017-08-12 12:46] VITALS: BP 157/68
[2017-08-12] MEDS ORDERED: Morphine Sulfate 2mg/ml Inj IVP PRN (14:45)
[2017-08-12] MEDS ORDERED: Nitroglycerin Subl 0.4mg tab SL PRN (14:45)
[2017-08-12] MEDS ORDERED: Miralax 17gm pkt ORAL PRN (14:45)
[2017-08-12] MEDS ORDERED: Mylanta II UD 30ml ORAL PRN (14:45)
--- NOTE | 2017-08-12 14:49 | History and Physical ---
History of Present Illness General Date patient seen: Aug 12, 2017 Reason for Hospitalization: Gastrointestinal Bleed Present Illness HPI 76-year-old male history of hypertension, CAD on Plavix, history of A. fib currently in sinus rhythm , presenting with rectal bleeding that started 10 minutes prior to arrival, bright red blood per rectum, moderate amount. Slight lightheadedness. Slight abdominal pain that has resolved. No nausea or vomiting. Patient had recent endoscopy and colonoscopy performed this past January which showed polyps and gastritis. Allergies: Coded Allergies: No Known Allergies (Unverified , 01/25/17) Medication History Scheduled Amiodarone Hcl* (Amiodarone Hcl*), 200 MG ORAL EVERY 12 HOURS, (Reported) Aspirin* (Aspir 81*), 81 MG ORAL DAILY, (Reported) Clopidogrel Bisulfate* (Plavix*), 75 MG ORAL DAILY, (Reported) Lisinopril* (Lisinopril*), 5 MG ORAL DAILY, (Reported) Pantoprazole* (Protonix*), 40 MG ORAL DAILY, (Reported) Rivaroxaban (Xarelto*), 10 MG ORAL DAILY, (Reported) Tamsulosin Hcl (Tamsulosin Hcl*), 0.4 MG ORAL BEDTIME, (Reported) Patient History Healthcare decision maker Resuscitation status Advanced Directive on File Past Medical/Surgical History Past Medical/Surgical History: (1) HTN (hypertension) Review of Systems Constitutional: Reports: no symptoms Eye: Reports: no symptoms ENT: Reports: no symptoms Gastrointestinal: Reports: no symptoms Genitourinary: Reports: no symptoms Physical Exam General Appearance: WD/WN Lines, tubes and drains: peripheral HEENT: normocephalic, atraumatic Neck: non-tender, normal alignment Respiratory/Chest: chest wall non-tender, lungs clear, normal breath sounds Cardiovascular/Chest: normal peripheral pulses, normal rate Last 24 Hour Vital Signs Date Time Temp Pulse Resp B/P (MAP) Pulse Ox O2 Delivery O2 Flow Rate FiO2 08/12/17 12:46 98.2 62 19 157/68 100 Room Air 08/12/17 10:06 97.9 66 19 162/77 100 Room Air 08/12/17 09:40 97.9 94 20 190/95 99 Room Air Laboratory Tests Test 08/12/17 09:55 08/12/17 10:40 White Blood Count 6.8 K/UL (4.8-10.8) Red Blood Count 5.63 M/UL (4.70-6.10) Hemoglobin 11.5 G/DL (14.2-18.0) L Hematocrit 38.9 % (42.0-52.0) L Mean Corpuscular Volume 69 FL (80-99) L Mean Corpuscular Hemoglobin 20.5 PG (27.0-31.0) L Mean Corpuscular Hemoglobin Concent 29.6 G/DL (32.0-36.0) L Red Cell Distribution Width 13.2 % (11.6-14.8) Platelet Count 310 K/UL (150-450) Mean Platelet Volume 7.4 FL (6.5-10.1) Neutrophils (%) (Auto) 45.8 % (45.0-75.0) Lymphocytes (%) (Auto) 42.3 % (20.0-45.0) Monocytes (%) (Auto) 6.8 % (1.0-10.0) Eosinophils (%) (Auto) 4.2 % (0.0-3.0) H Basophils (%) (Auto) 0.9 % (0.0-2.0) Prothrombin Time 9.8 SEC (9.30-11.50) Prothromb Time International Ratio 0.9 (0.9-1.1) Activated Partial Thromboplast Time 25 SEC (23-33) Sodium Level 142 MMOL/L (136-145) Potassium Level 4.7 MMOL/L (3.5-5.1) Chloride Level 107 MMOL/L (98-107) Carbon Dioxide Level 27 MMOL/L (21-32) Anion Gap 8 (5-15) Blood Urea Nitrogen 24 mg/dL (7-18) H Creatinine 1.6 MG/DL (0.55-1.30) H Estimat Glomerular Filtration Rate mL/min (>60) Glucose Level 103 MG/DL (74-106) Calcium Level 9.3 MG/DL (8.5-10.1) Total Bilirubin 0.5 MG/DL (0.2-1.0) Aspartate Amino Transf (AST/SGOT) 51 U/L (15-37) H Alanine Aminotransferase (ALT/SGPT) 27 U/L (12-78) Alkaline Phosphatase 73 U/L (46-116) Troponin I 0.153 ng/mL (0.000-0.056) Total Protein 7.5 G/DL (6.4-8.2) Albumin 3.8 G/DL (3.4-5.0) Globulin 3.7 g/dL Albumin/Globulin Ratio 1.0 (1.0-2.7) Lipase 197 U/L (73-393) Height (Feet): 5 Height (Inches): 5.00 Weight (Pounds): 150 Medications Current Medications Medications (Trade) Dose Ordered Sig/Timothy Route PRN Reason Start Time Stop Time Status Last Admin Dose Admin Acetaminophen (Tylenol) 650 mg Q4H PRN ORAL fever 08/12/17 14:45 09/11/17 14:44 UNV Al Hydroxide/Mg Hydroxide (Mylanta II) 30 ml Q6H PRN ORAL dyspepsia 08/12/17 14:45 09/11/17 14:44 UNV Amiodarone HCl (Cordarone) 200 mg EVERY 12 HOURS ORAL 08/12/17 21:00 09/11/17 20:59 UNV Dextrose (Dextrose 50%) STAT PRN IV Hypoglycemia 08/12/17 14:45 09/11/17 14:44 UNV Dextrose/Sodium Chloride 1,000 ml @ 100 mls/hr Q10H IV 08/12/17 14:44 09/11/17 14:43 UNV Diphenhydramine HCl (Benadryl) 25 mg Q6H PRN ORAL Itching/Pruritis 08/12/17 14:45 09/11/17 14:44 UNV Lisinopril (Zestril) 5 mg DAILY ORAL 08/13/17 09:00 09/12/17 08:59 UNV Morphine Sulfate (Morphine Sulfate) 2 mg EVERY 4 HOURS PRN IVP severe Pain (Pain Scale 7-10) 08/12/17 14:45 08/19/17 14:44 UNV Nitroglycerin (Ntg) 0.4 mg Q5M X 3 DOSES PRN SL Prn Chest Pain 08/12/17 14:45 09/11/17 14:44 UNV Ondansetron HCl (Zofran) 4 mg Q6H PRN IVP Nausea & Vomiting 08/12/17 14:45 09/11/17 14:44 UNV Phytonadione 10 mg/Dextrose 56 ml @ 110 mls/hr ONCE ONCE IVPB 08/12/17 14:45 08/12/17 15:15 UNV Polyethylene Glycol (Miralax) 17 gm HSPRN PRN ORAL Constipation 08/12/17 14:45 09/11/17 14:44 UNV Tamsulosin HCl (Flomax) 0.4 mg BEDTIME ORAL 08/12/17 21:00 09/11/17 20:59 UNV Temazepam (Restoril) 15 mg HSPRN PRN ORAL Insomnia 08/12/17 14:45 08/19/17 14:44 UNV Assessment/Plan Problem List: (1) Gastrointestinal hemorrhage ICD Codes: K92.2 - Gastrointestinal hemorrhage, unspecified SNOMED: 60337064 (2) HTN (hypertension) ICD Codes: I10 - Essential (primary) hypertension SNOMED: 03206568 Assessment/Plan NPO IV fluid GI evaluation symptomatic treatment check h/h dvt prophylaxis Cardio to see as well. YOLIE HECTOR Aug 12, 2017 14:49
[2017-08-12 16:00] VITALS: BP 137/70
[2017-08-12] MEDS ORDERED: Phytonadione 10 MG in D5W 55 ML IVPB ONE (16:00)
[2017-08-12] MEDS: D5NS 1,000 ML IV SCH (16:32)
--- NOTE | 2017-08-12 17:15 | Cardiology Progress Note ---
Assessment/Plan Assessment/Plan [id number] brbpr cad s/p stetn in lad x2 (02/2017)\ paf htn renal insuf abn cardiac enzyme serial cbc nd cardaic enzymes and ekg hodl antiplt agent and xarelto until determine extent of bleeding if no sig bleeding shannon need to resume antiplt and xarelt tomrrow Objective Last 24 Hour Vital Signs Date Time Temp Pulse Resp B/P (MAP) Pulse Ox O2 Delivery O2 Flow Rate FiO2 08/12/17 16:00 98.8 20 137/70 96 Room Air 08/12/17 12:46 98.2 62 19 157/68 100 Room Air 08/12/17 10:06 97.9 66 19 162/77 100 Room Air 08/12/17 09:40 97.9 94 20 190/95 99 Room Air Laboratory Tests Test 08/12/17 09:55 08/12/17 10:40 White Blood Count 6.8 K/UL (4.8-10.8) Red Blood Count 5.63 M/UL (4.70-6.10) Hemoglobin 11.5 G/DL (14.2-18.0) L Hematocrit 38.9 % (42.0-52.0) L Mean Corpuscular Volume 69 FL (80-99) L Mean Corpuscular Hemoglobin 20.5 PG (27.0-31.0) L Mean Corpuscular Hemoglobin Concent 29.6 G/DL (32.0-36.0) L Red Cell Distribution Width 13.2 % (11.6-14.8) Platelet Count 310 K/UL (150-450) Mean Platelet Volume 7.4 FL (6.5-10.1) Neutrophils (%) (Auto) 45.8 % (45.0-75.0) Lymphocytes (%) (Auto) 42.3 % (20.0-45.0) Monocytes (%) (Auto) 6.8 % (1.0-10.0) Eosinophils (%) (Auto) 4.2 % (0.0-3.0) H Basophils (%) (Auto) 0.9 % (0.0-2.0) Prothrombin Time 9.8 SEC (9.30-11.50) Prothromb Time International Ratio 0.9 (0.9-1.1) Activated Partial Thromboplast Time 25 SEC (23-33) Sodium Level 142 MMOL/L (136-145) Potassium Level 4.7 MMOL/L (3.5-5.1) Chloride Level 107 MMOL/L (98-107) Carbon Dioxide Level 27 MMOL/L (21-32) Anion Gap 8 (5-15) Blood Urea Nitrogen 24 mg/dL (7-18) H Creatinine 1.6 MG/DL (0.55-1.30) H Estimat Glomerular Filtration Rate mL/min (>60) Glucose Level 103 MG/DL (74-106) Calcium Level 9.3 MG/DL (8.5-10.1) Total Bilirubin 0.5 MG/DL (0.2-1.0) Aspartate Amino Transf (AST/SGOT) 51 U/L (15-37) H Alanine Aminotransferase (ALT/SGPT) 27 U/L (12-78) Alkaline Phosphatase 73 U/L (46-116) Troponin I 0.153 ng/mL (0.000-0.056) Total Protein 7.5 G/DL (6.4-8.2) Albumin 3.8 G/DL (3.4-5.0) Globulin 3.7 g/dL Albumin/Globulin Ratio 1.0 (1.0-2.7) Lipase 197 U/L (73-393) MARISABEL MANTILLA Aug 12, 2017 17:15
[2017-08-12 18:51] LABS: THYROID STIMULATING HORMONE 11.035 uiU/mL (0.360-3.740)
[2017-08-12 20:00] VITALS: BP 155/69
[2017-08-12] MEDS: Amiodarone 200mg tab ORAL SCH (22:05)
[2017-08-12] MEDS: Tamsulosin 0.4mg cap ORAL SCH (22:05)
[2017-08-13] VITALS: BP 144/94
[2017-08-13] MEDS: D5NS 1,000 ML IV SCH ×3 (02:28→22:28)
[2017-08-13 04:00] VITALS: BP 133/68
[2017-08-13 08:00] VITALS: BP 149/73
[2017-08-13] MEDS: Lisinopril 2.5mg tab ORAL SCH (09:17)
[2017-08-13] MEDS: Amiodarone 200mg tab ORAL SCH ×2 (09:17→20:57)
[2017-08-13 09:45] LABS: MEAN CORPUSCULAR HEMOGLOBIN 20.8 PG (27.0-31.0); MEAN CORPUSCULAR HGB CONC 29.9 G/DL (32.0-36.0); MEAN CORPUSCULAR VOLUME 69 FL (80-99); MEAN PLATELET VOLUME 7.8 FL (6.5-10.1); PLATELET COUNT 325 K/UL (150-450); RED BLOOD COUNT 5.23 M/UL (4.70-6.10); RED CELL DISTRIBUTION WIDTH 12.9 % (11.6-14.8); WHITE BLOOD COUNT 4.3 K/UL (4.8-10.8)
[2017-08-13 10:09] LABS: PROTHROMBIN TIME 10.3 SEC (9.30-11.50)
[2017-08-13 10:37] LABS: BAND NEUTROPHILS % (MANUAL) 0 % (0-8); BASOPHILS % (MANUAL) 0 % (0-2); EOSINOPHILS % (MANUAL) 5 % (0-3); LYMPHOCYTES % (MANUAL) 30 % (20-45); NEUTROPHILS % (MANUAL) 52 % (45-75); PLATELET ESTIMATE ADEQUATE; PLATELET MORPHOLOGY NORMAL; TOTAL CELLS COUNTED 100
[2017-08-13 10:38] LABS: ACANTHOCYTES 1+; TARGET CELLS 1+
[2017-08-13 10:39] LABS: IRON 83 ug/dL (50-175); TOTAL IRON BINDING CAPACITY 268 ug/dL (250-450)
[2017-08-13 10:45] LABS: ALANINE AMINOTRANSFERASE 22 U/L (12-78); ALBUMIN/GLOBULIN RATIO 0.9 (1.0-2.7); AMYLASE 95 U/L (25-115); ANION GAP 6 (5-15); ASPARTATE AMINO TRANSFERASE 36 U/L (15-37); CARBON DIOXIDE 27 MMOL/L (21-32); CHLORIDE 104 MMOL/L (98-107); CREATININE 1.4 MG/DL (0.55-1.30); LIPASE 192 U/L (73-393); POTASSIUM 4.1 MMOL/L (3.5-5.1); SODIUM 136 MMOL/L (136-145)
[2017-08-13 10:51] LABS: PATH BLOOD SMEAR/OMC SEND TO PATHOLOGIST; RETICULOCYTE COUNT 1.4 % (0.0-2.0)
[2017-08-13 11:11] LABS: CHOLESTEROL 156 MG/DL (< 200); CHOLESTEROL/HDL RATIO 2.4 (3.3-4.4); LACTATE DEHYDROGENASE 179 U/L (81-234)
[2017-08-13 11:17] LABS: ERYTHROCYTE SEDIMENTATION RATE 12 MM/HR (0-20)
[2017-08-13 11:38] LABS: FOLIC ACID 18.1 NG/ML (3.1-17.5)
--- NOTE | 2017-08-13 11:50 | Pulmonology Progress Note ---
Assessment/Plan Assessment/Plan ASSESSMENT GI hemorrhage CAD with hx of stents in LAD x 2 on 02/2017 PAF HTN renal insufficiency likely due to dehydration elevated troponin gastritis anemia of chronic disease subclinical hypothyroidism moderate MR mild pulmonary HTN PLAN OF CARE tele cardio follows initially hold a/PLT and Xarelto per cardio if no further bleeding, can be resumed today will resume serial troponin first up, today with minimal trend down-plateau abnormal troponin -per cardio management patient free from any cardiac symptoms, s/p recent stents continue Amiodarone ECG no acute ischemic changes ECHO with pEF 60 % and RVSP of 42, as well as moderate mitral regurgitation BP management with CCB and ERENDIRA, pain management monitor HH, stable anemia w/up c/w anemia of chronic disease heme eval elevated TSH, T4 WNL, likely subclinical hypothyroidism, no need for thyroid supplement at this time check TFT in 1-2 months venous Duplex BLE creat down to 1.4 with IV hydration, ASAF likely with element of dehydration GI prophylaxis case discussed and evaluated by supervising physician Subjective Allergies: Coded Allergies: No Known Allergies (Unverified , 01/25/17) Subjective had BM earlier today, denies any blood in it HH stable denies CP, SON, palpitations, dizziness SR on tele Objective Last 24 Hour Vital Signs Date Time Temp Pulse Resp B/P (MAP) Pulse Ox O2 Delivery O2 Flow Rate FiO2 08/13/17 09:17 149/73 08/13/17 08:00 62 08/13/17 08:00 97.7 60 21 149/73 96 Room Air 08/13/17 04:00 97.0 62 20 133/68 98 Room Air 08/13/17 04:00 45 08/13/17 00:00 48 08/13/17 00:00 97.5 54 22 144/94 97 Room Air 08/12/17 20:00 58 08/12/17 20:00 97.5 55 22 155/69 96 Room Air 08/12/17 16:00 98.8 20 137/70 96 Room Air 08/12/17 16:00 69 08/12/17 13:33 98.2 62 19 157/68 100 Room Air 08/12/17 12:46 98.2 62 19 157/68 100 Room Air Intake and Output 08/13/17 08/14/17 19:00 07:00 # Bowel Movements 1 General Appearance: WD/WN HEENT: normocephalic, atraumatic, anicteric, mucous membranes moist, PERRL Respiratory/Chest: chest wall non-tender, lungs clear, no respiratory distress , no accessory muscle use Cardiovascular: normal peripheral pulses, normal rate, regular rhythm - SR on tele Abdomen: soft, non tender, non distended Extremities: no edema, pedal pulses normal Neurologic/Psychiatric: no motor/sensory deficits, alert, oriented x 3, responsive Musculoskeletal: normal muscle bulk Laboratory Tests 08/12/17 17:30: Soluble Transferrin Receptor [Pending], Ferritin 271, Troponin I 0.217H, Methylmalonic Acid [Pending], Thyroid Stimulating Hormone (TSH) 11.035H 08/13/17 08:07: Troponin I 0.214H, White Blood Count 4.3L, Red Blood Count 5.23, Hemoglobin 10.9L, Hematocrit 36.3L, Mean Corpuscular Volume 69L, Mean Corpuscular Hemoglobin 20.8L, Mean Corpuscular Hemoglobin Concent 29.9L, Red Cell Distribution Width 12.9, Platelet Count 325, Mean Platelet Volume 7.8, Neutrophils (%) (Auto) , Lymphocytes (%) (Auto) , Monocytes (%) (Auto) , Eosinophils (%) (Auto) , Basophils (%) (Auto) , Differential Total Cells Counted 100, Neutrophils % (Manual) 52, Lymphocytes % (Manual) 30, Monocytes % ( Manual) 13H, Eosinophils % (Manual) 5H, Basophils % (Manual) 0, Band Neutrophils 0, Platelet Estimate Adequate, Platelet Morphology Normal, Target Cells 1+, Acanthocytes 1+, Erythrocyte Sedimentation Rate 12, Reticulocyte Count 1.4, Prothrombin Time 10.3, Prothromb Time International Ratio 1.0, Activated Partial Thromboplast Time 26, Sodium Level 136, Potassium Level 4.1, Chloride Level 104, Carbon Dioxide Level 27, Anion Gap 6, Blood Urea Nitrogen 15 , Creatinine 1.4H, Estimat Glomerular Filtration Rate , Glucose Level 121H, Calcium Level 9.0, Iron Level 83, Total Iron Binding Capacity 268, Percent Iron Saturation 31, Unsaturated Iron Binding 185, Total Bilirubin 0.6, Aspartate Amino Transf (AST/SGOT) 36, Alanine Aminotransferase (ALT/SGPT) 22, Alkaline Phosphatase 62, Lactate Dehydrogenase 179, Total Protein 7.0, Albumin 3.4, Globulin 3.6, Albumin/Globulin Ratio 0.9L, Triglycerides Level 52, Cholesterol Level 156, LDL Cholesterol 179H, HDL Cholesterol 64H, Cholesterol/HDL Ratio 2.4L , Amylase Level 95, Lipase 192, Carcinoembryonic Antigen [Pending], Vitamin B12 Level [Pending], Folate [Pending], Free Thyroxine [Pending] Current Medications Medications (Trade) Dose Ordered Sig/Timothy Route PRN Reason Start Time Stop Time Status Last Admin Dose Admin Acetaminophen (Tylenol) 650 mg Q4H PRN ORAL fever 08/12/17 14:45 09/11/17 14:44 Al Hydroxide/Mg Hydroxide (Mylanta II) 30 ml Q6H PRN ORAL dyspepsia 08/12/17 14:45 09/11/17 14:44 Amiodarone HCl (Cordarone) 200 mg EVERY 12 HOURS ORAL 08/12/17 21:00 09/11/17 20:59 08/13/17 09:17 Dextrose (Dextrose 50%) STAT PRN IV Hypoglycemia 08/12/17 14:45 09/11/17 14:44 Dextrose/Sodium Chloride 1,000 ml @ 100 mls/hr Q10H IV 08/12/17 16:00 09/11/17 15:59 08/13/17 02:28 Diphenhydramine HCl (Benadryl) 25 mg Q6H PRN ORAL Itching/Pruritis 08/12/17 14:45 09/11/17 14:44 Docusate Sodium (Colace) 100 mg TWICE A DAY ORAL 08/13/17 18:00 09/12/17 17:59 Hydrocortisone (Anusol HC) 1 supp TWICE A DAY RECTAL 08/13/17 18:00 09/12/17 17:59 Lisinopril (Zestril) 5 mg DAILY ORAL 08/13/17 09:00 09/12/17 08:59 08/13/17 09:17 Morphine Sulfate (Morphine Sulfate) 2 mg Q4H PRN IVP severe Pain (Pain Scale 7-10) 08/12/17 14:45 08/19/17 14:44 Nitroglycerin (Ntg) 0.4 mg Q5M X 3 DOSES PRN SL Prn Chest Pain 08/12/17 14:45 09/11/17 14:44 Ondansetron HCl (Zofran) 4 mg Q6H PRN IVP Nausea & Vomiting 08/12/17 14:45 09/11/17 14:44 Polyethylene Glycol (Miralax) 17 gm BEDTIME ORAL 08/13/17 21:00 09/12/17 20:59 Ranitidine HCl (Zantac) 150 mg BEDTIME ORAL 08/12/17 21:00 09/11/17 20:59 08/12/17 22:06 Tamsulosin HCl (Flomax) 0.4 mg BEDTIME ORAL 08/12/17 21:00 09/11/17 20:59 08/12/17 22:05 Temazepam (Restoril) 15 mg HSPRN PRN ORAL Insomnia 08/12/17 14:45 08/19/17 14:44 [facility] Aug 13, 2017 11:50
[2017-08-13 12:00] VITALS: BP 125/69
[2017-08-13 16:00] VITALS: BP 127/63
[2017-08-13] MEDS ORDERED: D5NS 1000ml IV ONE (16:35)
[2017-08-13] MEDS: Docusate 100mg cap ORAL SCH (17:47)
[2017-08-13] MEDS: Anusol HC Supp RECTAL SCH (17:47)
[2017-08-13 20:00] VITALS: BP 134/76
[2017-08-13] MEDS: Miralax 17gm pkt ORAL SCH (20:56)
[2017-08-13] MEDS: Tamsulosin 0.4mg cap ORAL SCH (20:57)
--- NOTE | 2017-08-13 22:27 | Cardiology Progress Note ---
Assessment/Plan Assessment/Plan did nto start antiocagulation will monitor Hbn Subjective Subjective the apteint is resting in his bed, alert h is kiswahili speaking denies chest pain or dyspnea had one normal color BM today Objective Last 24 Hour Vital Signs Date Time Temp Pulse Resp B/P (MAP) Pulse Ox O2 Delivery O2 Flow Rate FiO2 08/13/17 20:00 98.4 64 20 134/76 98 Room Air 08/13/17 16:00 58 08/13/17 16:00 98.0 57 20 127/63 98 Room Air 08/13/17 12:00 51 08/13/17 12:00 97.8 55 20 125/69 98 Room Air 08/13/17 09:17 149/73 08/13/17 08:00 62 08/13/17 08:00 97.7 60 21 149/73 96 Room Air 08/13/17 04:00 97.0 62 20 133/68 98 Room Air 08/13/17 04:00 45 08/13/17 00:00 48 08/13/17 00:00 97.5 54 22 144/94 97 Room Air General Appearance: no apparent distress EENT: PERRL/EOMI Neck: supple Rhythm: NSR Cardiovascular: normal rate Respiratory/Chest: lungs clear Abdomen: soft, no mass Extremities: non-tender Intake and Output 08/13/17 08/14/17 19:00 07:00 Intake Total 1698.33 ml Balance 1698.33 ml Intake Oral 600 ml IV Total 1098.33 ml # Voids 3 # Bowel Movements 1 Laboratory Tests Test 08/13/17 08:07 White Blood Count 4.3 K/UL (4.8-10.8) L Red Blood Count 5.23 M/UL (4.70-6.10) Hemoglobin 10.9 G/DL (14.2-18.0) L Hematocrit 36.3 % (42.0-52.0) L Mean Corpuscular Volume 69 FL (80-99) L Mean Corpuscular Hemoglobin 20.8 PG (27.0-31.0) L Mean Corpuscular Hemoglobin Concent 29.9 G/DL (32.0-36.0) L Red Cell Distribution Width 12.9 % (11.6-14.8) Platelet Count 325 K/UL (150-450) Mean Platelet Volume 7.8 FL (6.5-10.1) Neutrophils (%) (Auto) % (45.0-75.0) Lymphocytes (%) (Auto) % (20.0-45.0) Monocytes (%) (Auto) % (1.0-10.0) Eosinophils (%) (Auto) % (0.0-3.0) Basophils (%) (Auto) % (0.0-2.0) Differential Total Cells Counted 100 Neutrophils % (Manual) 52 % (45-75) Lymphocytes % (Manual) 30 % (20-45) Monocytes % (Manual) 13 % (1-10) H Eosinophils % (Manual) 5 % (0-3) H Basophils % (Manual) 0 % (0-2) Band Neutrophils 0 % (0-8) Platelet Estimate Adequate Platelet Morphology Normal Target Cells 1+ Acanthocytes 1+ Erythrocyte Sedimentation Rate 12 MM/HR (0-20) Reticulocyte Count 1.4 % (0.0-2.0) Prothrombin Time 10.3 SEC (9.30-11.50) Prothromb Time International Ratio 1.0 (0.9-1.1) Activated Partial Thromboplast Time 26 SEC (23-33) Sodium Level 136 MMOL/L (136-145) Potassium Level 4.1 MMOL/L (3.5-5.1) Chloride Level 104 MMOL/L (98-107) Carbon Dioxide Level 27 MMOL/L (21-32) Anion Gap 6 (5-15) Blood Urea Nitrogen 15 mg/dL (7-18) Creatinine 1.4 MG/DL (0.55-1.30) H Estimat Glomerular Filtration Rate mL/min (>60) Glucose Level 121 MG/DL (74-106) H Calcium Level 9.0 MG/DL (8.5-10.1) Iron Level 83 ug/dL (50-175) Total Iron Binding Capacity 268 ug/dL (250-450) Percent Iron Saturation 31 % (15-50) Unsaturated Iron Binding 185 ug/dL (112-346) Total Bilirubin 0.6 MG/DL (0.2-1.0) Aspartate Amino Transf (AST/SGOT) 36 U/L (15-37) Alanine Aminotransferase (ALT/SGPT) 22 U/L (12-78) Alkaline Phosphatase 62 U/L (46-116) Lactate Dehydrogenase 179 U/L (81-234) Troponin I 0.214 ng/mL (0.000-0.056) Total Protein 7.0 G/DL (6.4-8.2) Albumin 3.4 G/DL (3.4-5.0) Globulin 3.6 g/dL Albumin/Globulin Ratio 0.9 (1.0-2.7) L Triglycerides Level 52 MG/DL (0-200) Cholesterol Level 156 MG/DL (< 200) LDL Cholesterol 179 mg/dL (<100) H HDL Cholesterol 64 MG/DL (40-60) H Cholesterol/HDL Ratio 2.4 (3.3-4.4) L Amylase Level 95 U/L (25-115) Lipase 192 U/L (73-393) Carcinoembryonic Antigen Pending Vitamin B12 Level 305 PG/ML (193-986) Folate 18.1 NG/ML (3.1-17.5) H Free Thyroxine 0.74 NG/DL (0.10-1.46) REYES DORSEY Aug 13, 2017 22:27
[2017-08-14 00:49] VITALS: BP 136/66
[2017-08-14 08:17] VITALS: BP 142/84
[2017-08-14] MEDS: Amiodarone 200mg tab ORAL SCH ×2 (08:49→21:11)
[2017-08-14] MEDS: Aspirin EC 81mg tab ORAL SCH (08:49)
[2017-08-14] MEDS: D5NS 1,000 ML IV SCH ×3 (08:49→23:16)
[2017-08-14] MEDS: Docusate 100mg cap ORAL SCH ×2 (08:49→17:19)
[2017-08-14] MEDS: Lisinopril 2.5mg tab ORAL SCH (08:49)
[2017-08-14] MEDS: Anusol HC Supp RECTAL SCH ×2 (08:50→17:20)
[2017-08-14 08:55] LABS: BASOPHILS % (AUTO) 0.8 % (0.0-2.0); LYMPHOCYTES % (AUTO) 33.6 % (20.0-45.0); MEAN CORPUSCULAR HEMOGLOBIN 21.2 PG (27.0-31.0); MEAN CORPUSCULAR HGB CONC 30.7 G/DL (32.0-36.0); MEAN CORPUSCULAR VOLUME 69 FL (80-99); MEAN PLATELET VOLUME 7.4 FL (6.5-10.1); MONOCYTES % (AUTO) 7.5 % (1.0-10.0); PLATELET COUNT 294 K/UL (150-450); RED BLOOD COUNT 5.01 M/UL (4.70-6.10); RED CELL DISTRIBUTION WIDTH 13.1 % (11.6-14.8); WHITE BLOOD COUNT 5.3 K/UL (4.8-10.8)
[2017-08-14 09:04] LABS: ANION GAP 7 (5-15); CALCIUM 8.9 MG/DL (8.5-10.1); CARBON DIOXIDE 27 MMOL/L (21-32); CHLORIDE 110 MMOL/L (98-107); CREATININE 1.4 MG/DL (0.55-1.30); POTASSIUM 4.2 MMOL/L (3.5-5.1); SODIUM 144 MMOL/L (136-145)
--- NOTE | 2017-08-14 11:15 | Pulmonology Progress Note ---
Assessment/Plan Assessment/Plan ASSESSMENT GI hemorrhage likely hemorrhoidal bleeding CAD with hx of stents in LAD x 2 on 02/2017 PAF HTN ARF on CRI elevated troponin gastritis anemia of chronic disease subclinical hypothyroidism moderate MR mild pulmonary HTN episode of zak ( at sleep) PLAN OF CARE tele cardio follows initially hold a/PLT and Xarelto per cardio if no further bleeding, can be resumed , resumed this am serial troponin first up, today with minimal trend down-plateau abnormal troponin -per cardio management patient free from any cardiac symptoms, no a/coagulation as per cardio s/p recent stents noted zak at night only -per cardio management continue Amiodarone for now ECG no acute ischemic changes ECHO with pEF 60 % and RVSP of 42, as well as moderate mitral regurgitation BP management with CCB and ERENDIRA, pain management monitor HH, stable anemia w/up c/w anemia of chronic disease GI eval appreciated FL diet and advance as tolerated check stool OB heme eval elevated TSH, T4 WNL, likely subclinical hypothyroidism, no need for thyroid supplement at this time check TFT in 1-2 months venous Duplex BLE creat down to 1.4 with IV hydration, ASAF likely with element of dehydration on CRI GI prophylaxis case discussed and evaluated by supervising physician Subjective Allergies: Coded Allergies: No Known Allergies (Unverified , 01/25/17) Subjective had BM denies any blood in it HH stable denies CP, SOB, palpitations, dizziness SR on tele bradycardia episode in 40-50 while asleep, Objective Last 24 Hour Vital Signs Date Time Temp Pulse Resp B/P (MAP) Pulse Ox O2 Delivery O2 Flow Rate FiO2 08/14/17 08:49 142/84 08/14/17 08:17 98.4 67 20 142/84 97 Room Air 08/14/17 08:00 66 08/14/17 04:00 51 08/14/17 00:49 97.5 58 16 136/66 97 Room Air 08/14/17 00:00 64 08/13/17 20:00 98.4 64 20 134/76 98 Room Air 08/13/17 20:00 56 08/13/17 16:00 58 08/13/17 16:00 98.0 57 20 127/63 98 Room Air 08/13/17 12:00 51 08/13/17 12:00 97.8 55 20 125/69 98 Room Air Intake and Output 08/14/17 08/15/17 19:00 07:00 Intake Total 601.66 ml Balance 601.66 ml Intake Oral 240 ml IV Total 361.66 ml # Bowel Movements 1 Objective General Appearance: WD/WN HEENT: normocephalic, atraumatic, anicteric, mucous membranes moist, PERRL Respiratory/Chest: chest wall non-tender, lungs clear, no respiratory distress , no accessory muscle use Cardiovascular: normal peripheral pulses, normal rate, regular rhythm - SR on tele Abdomen: soft, non tender, non distended Extremities: no edema, pedal pulses normal Neurologic/Psychiatric: no motor/sensory deficits, alert, oriented x 3, responsive Musculoskeletal: normal muscle bulk Laboratory Tests 08/14/17 05:10: Stool Occult Blood [Pending] 08/14/17 06:54: White Blood Count 5.3, Red Blood Count 5.01, Hemoglobin 10.6L, Hematocrit 34.6L , Mean Corpuscular Volume 69L, Mean Corpuscular Hemoglobin 21.2L, Mean Corpuscular Hemoglobin Concent 30.7L, Red Cell Distribution Width 13.1, Platelet Count 294, Mean Platelet Volume 7.4, Neutrophils (%) (Auto) 53.0, Lymphocytes (%) (Auto) 33.6, Monocytes (%) (Auto) 7.5, Eosinophils (%) (Auto) 5.0H, Basophils (%) (Auto) 0.8, Sodium Level 144, Potassium Level 4.2, Chloride Level 110H, Carbon Dioxide Level 27, Anion Gap 7, Blood Urea Nitrogen 11, Creatinine 1.4H, Estimat Glomerular Filtration Rate , Glucose Level 102, Calcium Level 8.9 Current Medications Medications (Trade) Dose Ordered Sig/Timothy Route PRN Reason Start Time Stop Time Status Last Admin Dose Admin Acetaminophen (Tylenol) 650 mg Q4H PRN ORAL fever 08/12/17 14:45 09/11/17 14:44 Al Hydroxide/Mg Hydroxide (Mylanta II) 30 ml Q6H PRN ORAL dyspepsia 08/12/17 14:45 09/11/17 14:44 Amiodarone HCl (Cordarone) 200 mg EVERY 12 HOURS ORAL 08/12/17 21:00 09/11/17 20:59 08/14/17 08:49 Aspirin (Ecotrin) 81 mg DAILY ORAL 08/14/17 09:00 09/13/17 08:59 08/14/17 08:49 Dextrose (Dextrose 50%) STAT PRN IV Hypoglycemia 08/12/17 14:45 09/11/17 14:44 Dextrose/Sodium Chloride 1,000 ml @ 100 mls/hr Q10H IV 08/12/17 16:00 09/11/17 15:59 08/14/17 08:49 Diphenhydramine HCl (Benadryl) 25 mg Q6H PRN ORAL Itching/Pruritis 08/12/17 14:45 09/11/17 14:44 Docusate Sodium (Colace) 100 mg TWICE A DAY ORAL 08/13/17 18:00 09/12/17 17:59 08/14/17 08:49 Hydrocortisone (Anusol HC) 1 supp TWICE A DAY RECTAL 08/13/17 18:00 09/12/17 17:59 08/13/17 17:47 Lisinopril (Zestril) 5 mg DAILY ORAL 08/13/17 09:00 09/12/17 08:59 08/14/17 08:49 Morphine Sulfate (Morphine Sulfate) 2 mg Q4H PRN IVP severe Pain (Pain Scale 7-10) 08/12/17 14:45 08/19/17 14:44 Nitroglycerin (Ntg) 0.4 mg Q5M X 3 DOSES PRN SL Prn Chest Pain 08/12/17 14:45 09/11/17 14:44 Ondansetron HCl (Zofran) 4 mg Q6H PRN IVP Nausea & Vomiting 08/12/17 14:45 09/11/17 14:44 Polyethylene Glycol (Miralax) 17 gm BEDTIME ORAL 08/13/17 21:00 09/12/17 20:59 08/13/17 20:56 Ranitidine HCl (Zantac) 150 mg BEDTIME ORAL 08/12/17 21:00 09/11/17 20:59 08/13/17 20:57 Rivaroxaban (Xarelto) 15 mg QPM ORAL 08/14/17 16:30 09/13/17 16:29 Tamsulosin HCl (Flomax) 0.4 mg BEDTIME ORAL 08/12/17 21:00 09/11/17 20:59 08/13/17 20:57 Temazepam (Restoril) 15 mg HSPRN PRN ORAL Insomnia 08/12/17 14:45 08/19/17 14:44 [facility] Aug 14, 2017 11:14
[2017-08-14 11:31] VITALS: BP 146/78
[2017-08-14 15:47] VITALS: BP 143/75
[2017-08-14] MEDS ORDERED: Xarelto 15mg tab ORAL SCH (16:30)
[2017-08-14] MEDS ORDERED: D5NS 1000ml IV ONE (17:12)
--- NOTE | 2017-08-14 18:37 | General Progress Note ---
Assessment/Plan Problem List: (1) GI bleed ICD Codes: K92.2 - Gastrointestinal hemorrhage, unspecified SNOMED: 45189033 (2) Constipated ICD Codes: K59.00 - Constipation, unspecified SNOMED: 90047862 (3) S/P colonoscopic polypectomy ICD Codes: Z98.890 - Other specified postprocedural states SNOMED: 47194568, 909751122, 638315776, [id number] Assessment/Plan no recurrent bleed given recent GI procedures will hold procedure for now tolerating diet treat for hemorrhoids ok to dc GI stand point Subjective ROS Limited/Unobtainable: Yes Allergies: Coded Allergies: No Known Allergies (Unverified , 01/25/17) Subjective no recurrent bleed Objective Last 24 Hour Vital Signs Date Time Temp Pulse Resp B/P (MAP) Pulse Ox O2 Delivery O2 Flow Rate FiO2 08/14/17 15:47 97.7 58 20 143/75 95 Room Air 08/14/17 12:00 50 08/14/17 11:31 98.1 66 20 146/78 97 Room Air 08/14/17 08:49 142/84 08/14/17 08:17 98.4 67 20 142/84 97 Room Air 08/14/17 08:00 66 08/14/17 04:00 51 08/14/17 00:49 97.5 58 16 136/66 97 Room Air 08/14/17 00:00 64 08/13/17 20:00 98.4 64 20 134/76 98 Room Air 08/13/17 20:00 56 Intake and Output 08/14/17 08/15/17 19:00 07:00 Intake Total 1861.66 ml Output Total 1200 ml Balance 661.66 ml Intake Oral 800 ml IV Total 1061.66 ml Output Urine Total 1200 ml # Bowel Movements 2 Laboratory Tests 08/14/17 05:10: Stool Occult Blood Negative 08/14/17 06:54: White Blood Count 5.3, Red Blood Count 5.01, Hemoglobin 10.6L, Hematocrit 34.6L , Mean Corpuscular Volume 69L, Mean Corpuscular Hemoglobin 21.2L, Mean Corpuscular Hemoglobin Concent 30.7L, Red Cell Distribution Width 13.1, Platelet Count 294, Mean Platelet Volume 7.4, Neutrophils (%) (Auto) 53.0, Lymphocytes (%) (Auto) 33.6, Monocytes (%) (Auto) 7.5, Eosinophils (%) (Auto) 5.0H, Basophils (%) (Auto) 0.8, Sodium Level 144, Potassium Level 4.2, Chloride Level 110H, Carbon Dioxide Level 27, Anion Gap 7, Blood Urea Nitrogen 11, Creatinine 1.4H, Estimat Glomerular Filtration Rate , Glucose Level 102, Calcium Level 8.9 Height (Feet): 5 Height (Inches): 5.00 Weight (Pounds): 150 General Appearance: alert EENT: normal ENT inspection Neck: supple Cardiovascular: normal rate Respiratory/Chest: lungs clear Abdomen: normal bowel sounds, non tender, soft Extremities: non-tender EARL TUBBS Aug 14, 2017 18:37
--- NOTE | 2017-08-14 19:30 | Cardiology Progress Note ---
Assessment/Plan Assessment/Plan started on Xarelto and Aspirin Subjective Subjective patient reports no cardiac complaints, no abdominal pain, no black stool Objective Last 24 Hour Vital Signs Date Time Temp Pulse Resp B/P (MAP) Pulse Ox O2 Delivery O2 Flow Rate FiO2 08/14/17 16:00 55 08/14/17 15:47 97.7 58 20 143/75 95 Room Air 08/14/17 12:00 50 08/14/17 11:31 98.1 66 20 146/78 97 Room Air 08/14/17 08:49 142/84 08/14/17 08:17 98.4 67 20 142/84 97 Room Air 08/14/17 08:00 66 08/14/17 04:00 51 08/14/17 00:49 97.5 58 16 136/66 97 Room Air 08/14/17 00:00 64 08/13/17 20:00 98.4 64 20 134/76 98 Room Air 08/13/17 20:00 56 General Appearance: no apparent distress EENT: PERRL/EOMI Neck: supple Rhythm: NSR Cardiovascular: normal rate Respiratory/Chest: lungs clear Abdomen: non tender, soft Extremities: non-pitting Intake and Output 08/14/17 08/15/17 19:00 07:00 Intake Total 1861.66 ml Output Total 1200 ml Balance 661.66 ml Intake Oral 800 ml IV Total 1061.66 ml Output Urine Total 1200 ml # Bowel Movements 2 Laboratory Tests Test 08/14/17 05:10 08/14/17 06:54 Stool Occult Blood Negative (NEGATIVE) White Blood Count 5.3 K/UL (4.8-10.8) Red Blood Count 5.01 M/UL (4.70-6.10) Hemoglobin 10.6 G/DL (14.2-18.0) L Hematocrit 34.6 % (42.0-52.0) L Mean Corpuscular Volume 69 FL (80-99) L Mean Corpuscular Hemoglobin 21.2 PG (27.0-31.0) L Mean Corpuscular Hemoglobin Concent 30.7 G/DL (32.0-36.0) L Red Cell Distribution Width 13.1 % (11.6-14.8) Platelet Count 294 K/UL (150-450) Mean Platelet Volume 7.4 FL (6.5-10.1) Neutrophils (%) (Auto) 53.0 % (45.0-75.0) Lymphocytes (%) (Auto) 33.6 % (20.0-45.0) Monocytes (%) (Auto) 7.5 % (1.0-10.0) Eosinophils (%) (Auto) 5.0 % (0.0-3.0) H Basophils (%) (Auto) 0.8 % (0.0-2.0) Sodium Level 144 MMOL/L (136-145) Potassium Level 4.2 MMOL/L (3.5-5.1) Chloride Level 110 MMOL/L (98-107) H Carbon Dioxide Level 27 MMOL/L (21-32) Anion Gap 7 (5-15) Blood Urea Nitrogen 11 mg/dL (7-18) Creatinine 1.4 MG/DL (0.55-1.30) H Estimat Glomerular Filtration Rate mL/min (>60) Glucose Level 102 MG/DL (74-106) Calcium Level 8.9 MG/DL (8.5-10.1) REYES DORSEY Aug 14, 2017 19:30
[2017-08-14 20:00] VITALS: BP 142/62
[2017-08-14] MEDS: Tamsulosin 0.4mg cap ORAL SCH (21:11)
[2017-08-14] MEDS: Miralax 17gm pkt ORAL SCH (21:11)
--- NOTE | 2017-08-14 22:11 | General Progress Note ---
Assessment/Plan Assessment/Plan Assessment/Recs: # Anemia 2/2 GI hemorrhage- has seen Gi service, given prior egd/colo, at this time considering to hold off # Anemia of chronic disease - have reviewed anemia w/u # Subclinical hypothyroidism # CAD with hx of stents in LAD x 2 on 02/2017 # PAF # HTN # Moderate MR # Mild pulmonary HTN Subjective Constitutional: Denies: no symptoms, chills, diaphoresis, fever, malaise, weakness, other HEENT: Denies: no symptoms, eye pain, blurred vision, tearing, double vision, ear pain, ear discharge, nose pain, nose congestion, throat pain, throat swelling, mouth pain, mouth swelling, other Cardiovascular: Denies: no symptoms, chest pain, edema, irregular heart rate, lightheadedness, palpitations, syncope, other Respiratory: Denies: no symptoms, cough, orthopnea, shortness of breath, SOB with excertion, SOB at rest, sputum, stridor, wheezing, other Gastrointestinal/Abdominal: Denies: no symptoms, abdomen distended, abdominal pain, black stools, tarry stools, blood in stool, constipated, diarrhea, difficulty swallowing, nausea, poor appetite, poor fluid intake, rectal bleeding , vomiting, other Genitourinary: Denies: no symptoms, burning, discharge, frequency, flank pain, hematuria, incontinence, pain, urgency, other Neurologic/Psychiatric: Denies: no symptoms, anxiety, depressed, emotional problems, headache, numbness, paresthesia, pre-existing deficit, seizure, tingling, tremors, weakness, other Hematologic/Lymphatic: Reports: anemia Allergies: Coded Allergies: No Known Allergies (Unverified , 01/25/17) Subjective no f/c, no night sweats Objective Last 24 Hour Vital Signs Date Time Temp Pulse Resp B/P (MAP) Pulse Ox O2 Delivery O2 Flow Rate FiO2 08/14/17 20:00 97.9 62 16 142/62 97 Room Air 08/14/17 16:00 55 08/14/17 15:47 97.7 58 20 143/75 95 Room Air 08/14/17 12:00 50 08/14/17 11:31 98.1 66 20 146/78 97 Room Air 08/14/17 08:49 142/84 08/14/17 08:17 98.4 67 20 142/84 97 Room Air 08/14/17 08:00 66 08/14/17 04:00 51 08/14/17 00:49 97.5 58 16 136/66 97 Room Air 08/14/17 00:00 64 Intake and Output 08/14/17 08/15/17 19:00 07:00 Intake Total 1861.66 ml Output Total 1200 ml Balance 661.66 ml Intake Oral 800 ml IV Total 1061.66 ml Output Urine Total 1200 ml # Bowel Movements 2 Laboratory Tests 08/14/17 05:10: Stool Occult Blood Negative 08/14/17 06:54: White Blood Count 5.3, Red Blood Count 5.01, Hemoglobin 10.6L, Hematocrit 34.6L , Mean Corpuscular Volume 69L, Mean Corpuscular Hemoglobin 21.2L, Mean Corpuscular Hemoglobin Concent 30.7L, Red Cell Distribution Width 13.1, Platelet Count 294, Mean Platelet Volume 7.4, Neutrophils (%) (Auto) 53.0, Lymphocytes (%) (Auto) 33.6, Monocytes (%) (Auto) 7.5, Eosinophils (%) (Auto) 5.0H, Basophils (%) (Auto) 0.8, Sodium Level 144, Potassium Level 4.2, Chloride Level 110H, Carbon Dioxide Level 27, Anion Gap 7, Blood Urea Nitrogen 11, Creatinine 1.4H, Estimat Glomerular Filtration Rate , Glucose Level 102, Calcium Level 8.9 Height (Feet): 5 Height (Inches): 5.00 Weight (Pounds): 150 General Appearance: alert EENT: TMs normal Neck: supple Cardiovascular: regular rhythm Respiratory/Chest: no respiratory distress Abdomen: normal bowel sounds Extremities: non-tender Edema: 1+ Leg (L), 1+ Leg (R) Edema: mild edema Neurologic: alert Jerod Gavni Aug 14, 2017 22:11
--- NOTE | 2017-08-14 22:45 | Consultation ---
GASTROENTEROLOGY CONSULTATION CONSULTING PHYSICIAN: Holden Dexter M.D. CHIEF COMPLAINT: Rectal bleeding. HISTORY OF PRESENT ILLNESS: This is a 76-year-old male, known to me from prior admissions. I know him in December 2016, I performed endoscopy and colonoscopy for him. Endoscopy showed evidence of gastritis and colonoscopy showed the prep was not adequate in the cecum, but the patient had two polyps removed, no diverticulosis, and also had some internal hemorrhoids. The patient had a cardiac stent placement in February 2017, came into the hospital yesterday with rectal bleeding, this mostly happened after he was straining and had constipation and with bright red blood per rectum and has not had bleeding since admission. PAST MEDICAL HISTORY: 1. History of gastritis. 2. Colonic polyps. 3. Internal hemorrhoids. 4. Hypertension. 5. Coronary artery disease, status post cardiac stenting. 6. BPH. 7. Inguinal hernia. ALLERGIES: No known drug allergies. MEDICATIONS: Please see medication reconciliation list. SOCIAL HISTORY: The patient lives at home with supportive family. No alcohol. No IV drug abuse. REVIEW OF SYSTEMS: A 10-point review of systems was performed and pertinent positives in history of present illness. PHYSICAL EXAMINATION: VITAL SIGNS: Temperature 97.7 degrees, pulse 60, respirations 21, and blood pressure is 149/73. HEENT: Normocephalic and atraumatic. Sclerae anicteric. NECK: Supple. No evidence of lymphadenopathy. CARDIOVASCULAR: Regular rate and rhythm. Plus S1 and S2. LUNGS: Clear to auscultation bilaterally. ABDOMEN: Positive bowel sounds. Soft and nontender. No rebound. No guarding. No peritoneal sign. EXTREMITIES: No cyanosis, no clubbing, and no edema. NEUROLOGIC: Nonfocal. LABORATORY DATA: White count 6.8, hemoglobin 11.5, hematocrit 38.9, and platelet count is 310,000. ASSESSMENT AND PLAN: This is a 76-year-old male with rectal bleeding. I had a long discussion with Dr. Mckeon, the metal furniture glazier. We think most probably the patient bled from the hemorrhoids. He had a recent colonoscopy about six or seven months ago. So, plan will be to treat the hemorrhoids aggressively. Hold anticoagulation for one more day. Discussed with Dr. Mckeon. We are going to start tomorrow, Xarelto and Plavix if the patient has no recurrent bleeding. We will start the patient on Colace and MiraLAX. I advanced diet to full liquid diet. We will follow closely. Holden Dexter M.D. DR: CHRISTIANO JOB#: [id number] CC:
[2017-08-15] VITALS: BP 142/79
[2017-08-15 04:00] VITALS: BP 133/68
[2017-08-15 08:16] VITALS: BP 146/75
--- NOTE | 2017-08-15 08:30 | Consultation ---
DATE OF CONSULTATION: 08/12/2017 CARDIOLOGY CONSULTATION CONSULTING PHYSICIAN: Horacio Mckeon M.D. ATTENDING PHYSICIAN: Delores Pedraza M.D. REFERRING PHYSICIAN: Delores Pedraza M.D. REASON FOR REFERRAL: GI bleed, on anticoagulation and antiplatelet agents. HISTORY OF PRESENT ILLNESS: This is an elderly gentleman who was brought in to the hospital because of bleeding. This is his first episode of bright red blood that he noticed in the bathroom and he immediately came to the emergency room here at [facility]. He has never had any GI bleeding before. He has history of several cardiac issues, it appears he had a history of coronary disease, for which he had a syncopal episode back in February, was transferred between several hospitals, eventually ended up at [facility], and he ended up having 2 Resolute drug-eluting stents in the mid LAD and the proximal LAD according to the records here by Dr. Fritz Rolle. He really did not have any chest pain. Subsequently, he has not had chest pain or pressure. There is no PND, no orthopnea. He does feel better with 3-pillow use for comfort only. Occasionally, he will get dizzy or lightheaded when he sits up or stands up. There are no palpitations and no pain or pressure. He does have some minimal amounts of pain actually that last a sharp sensation of 1 second or so occasionally. PAST MEDICAL HISTORY: Positive for high blood pressure. No heart attack. No cancer. No stroke. No hepatitis or tuberculosis. He used to have asthma as a young man, but not any more. No ulcer, although he has been told that he had some bacterial infections in his GI tract that was treated with antibiotics after an endoscopy was performed by Dr. Dexter. No tuberculosis. No kidney or liver problems. No thyroid problems. He does have a history of prostate enlargement and no blood clots anywhere. He does apparently have a history of atrial fibrillation, not clear when that started. He has been on triple therapy with 2 antiplatelets and anticoagulants, but his aspirin has been discontinued, and he is being maintained on Xarelto as well as Plavix now. ALLERGIES: He is not allergic to any medications. SOCIAL HISTORY: He never smoked. He used to drink alcoholic beverages many years ago. 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 REVIEW OF SYSTEMS: GASTROINTESTINAL: There was no nausea, vomiting, or diarrhea. GENITOURINARY: He has some discomfort on urination. PULMONARY: Negative. CONSTITUTIONAL: Negative. NEUROLOGIC: Negative. PHYSICAL EXAMINATION: GENERAL: Elderly gentleman in no respiratory distress. NECK: Supple. No jugular venous distention. No abdominojugular reflux noted. LUNGS: Clear to auscultation and percussion. CARDIAC: S1 is normal. S2 is normal. Regular rate and rhythm. No heaves, thrills, gallops, or rubs are noted. ABDOMEN: Soft, nontender. Positive bowel sounds. EXTREMITIES: There is no clubbing, cyanosis, nor is there any edema. NEUROLOGICAL: He is awake, alert, and responsive, in no apparent respiratory distress. LABORATORY AND DIAGNOSTIC DATA: Chest x-ray shows no acute processes. His white count 6.8, hemoglobin 11.5, down from 12.5 back in January 2017, and platelet count of 310. Sodium is 142, potassium is 4.7, chloride 107, bicarbonate 27, BUN 24, and creatinine 1.6. His previous creatinine was as high as 1.4 back in January. His cardiac enzyme, troponin was 0.153. His coags 0.9, PTT of 25. His urinalysis was not performed. His electrocardiogram shows normal sinus rhythm, normal QRS axis, no real significant ST or T-wave abnormalities on the EKG is noted. ASSESSMENT: 1. Bright red blood per rectum. 2. History of coronary disease, status post stents in LAD in February 2017, drug-eluting. 3. Paroxysmal atrial fibrillation, on anticoagulation with Xarelto. 4. History of gastritis, hiatal hernia, and 2 colonic polyps noted on prior endoscopy and apparently colonoscopy previously performed. 5. Hypertension. 6. Abnormal cardiac enzymes. 7. Renal insufficiency. PLAN: Dr. Pedraza, this patient was seen in cardiac consultation. The patient has some bright red blood per rectum. His blood pressure most recently in the 130s to 190s and heart rates in the mid 60s to 90s. He is saturating between 96% and 100% on room air. He is not orthostatic in terms of symptoms and he has not had any significant other recurrent bowel movements that are bloody, just that 1 episode apparently. He does not have any chest pain or shortness of breath at this time. He certainly does have a history of coronary disease. His cardiac enzymes are minimally abnormal and need to be repeated to see if discrete is identified. Nevertheless, it is not clear that those levels may be elevated because of renal insufficiency. For the time being, he will be kept off of antiplatelets and anticoagulation therapy and repeat CBC should be performed to determine that the patient actually is dropping his hemoglobin and, of course, the antiplatelets and anticoagulant therapy would need to be on hold. In the meantime, serial enzymes and EKGs will be followed and recommendations depending on the results of those tests that will be provided. Horacio Mckeon M.D. DR: MARTIN JOB#: [id number] CC:
--- NOTE | 2017-08-15 08:30 | Consultation ---
DATE OF CONSULTATION: 08/12/2017 HEMATOLOGY/ONCOLOGY CONSULTATION CONSULTING PHYSICIAN: Jerod Gavin M.D. ATTENDING PHYSICIAN: Delores Pedraza M.D. REFERRING PHYSICIAN: Delores Pedraza M.D. REASON FOR CONSULTATION: Management of GI bleed. IDENTIFICATION DATA: Dear Dr. Pedraza: The patient is a pleasant 76-year-old male with a past medical history significant for atrial fibrillation, in sinus rhythm, hypertension, CAD, on Plavix, presents with rectal bleeding for the last several minutes prior to arrival, blood in the rectum. Denies any fever, chills, or night sweats, but does have some lightheadedness. He was found to have a hemoglobin of 10.5. The patient had endoscopy and GI procedure completed in January that showed polyps and gastritis. Hematology service is consulted. PAST MEDICAL HISTORY: As noted above, atrial fibrillation, on Plavix. PAST SURGICAL HISTORY: None noted. MEDICATIONS: Plavix. ALLERGIES: No known drug allergies. FAMILY HISTORY: Noncontributory. REVIEW OF SYSTEMS: CONSTITUTIONAL: No fever, chills, or night sweats. SKIN: No rashes, bumps, or itching. HEENT: No headache, hearing or vision changes. BREASTS: No lumps, pain, or discharge. PULMONARY: No cough, sputum, or shortness of breath. GASTROINTESTINAL: No nausea, vomiting, or diarrhea. GENITOURINARY: No dysuria, frequency, or urgency. MUSCULOSKELETAL: No joint swelling, muscle pain, or trauma. PHYSICAL EXAMINATION: GENERAL: The patient is in no acute distress. VITAL SIGNS: Reviewed. PULMONARY: Decreased breath sounds. CARDIOVASCULAR: Regular rate. No S3 or S4. ABDOMEN: Soft, nontender, and nondistended. EXTREMITIES: There is 1+ edema. LABORATORY DATA: WBC is 6.8, hemoglobin 11.5, hematocrit 39, and platelet count 310,000. INR is 0.9. BUN is 24 and creatinine 1.6. Troponin is 0.153. ASSESSMENT AND RECOMMENDATIONS: 1. Anemia, secondary to chronic disease with microcytosis noted. I have ordered anemia workup. 2. Anemia, secondary to GI bleed. 3. GI bleed. 4. Microcytosis. Evaluate iron status at this time. 5. Dehydration, azotemia, creatinine elevated. Nephrology to see the patient. 6. Elevated troponin. Evaluation with Cardiology service as needed. 7. . Continue to closely follow. 8. Lightheadedness, due to anemia. I appreciate the consultation. Jerod Gavin M.D. DR: DEYSI JOB#: [id number] CC:
[2017-08-15 08:54] LABS: BASOPHILS % (AUTO) 0.6 % (0.0-2.0); EOSINOPHILS % (AUTO) 4.3 % (0.0-3.0); LYMPHOCYTES % (AUTO) 31.6 % (20.0-45.0); MEAN CORPUSCULAR HGB CONC 31.9 G/DL (32.0-36.0); MEAN CORPUSCULAR VOLUME 69 FL (80-99); MEAN PLATELET VOLUME 8.2 FL (6.5-10.1); MONOCYTES % (AUTO) 7.6 % (1.0-10.0); NEUTROPHILS % (AUTO) 55.9 % (45.0-75.0); PLATELET COUNT 294 K/UL (150-450); WHITE BLOOD COUNT 6.2 K/UL (4.8-10.8)
[2017-08-15] MEDS: Docusate 100mg cap ORAL SCH (09:00)
[2017-08-15] MEDS: Aspirin EC 81mg tab ORAL SCH (09:00)
[2017-08-15] MEDS: Anusol HC Supp RECTAL SCH (09:00)
[2017-08-15 09:03] LABS: ANION GAP 7 (5-15); CALCIUM 8.9 MG/DL (8.5-10.1); CARBON DIOXIDE 27 MMOL/L (21-32); CHLORIDE 109 MMOL/L (98-107); CREATININE 1.5 MG/DL (0.55-1.30); SODIUM 143 MMOL/L (136-145)
--- NOTE | 2017-08-15 09:43 | Cardiology Report ---
APPROVED REPORT EXAM: Two-dimensional and M-mode echocardiogram with Doppler and color Doppler. INDICATION Coronary artery disease M-Mode DIMENSIONS IVSd0.8 (0.7-1.1cm)Left Atrium (MM)4.0 (1.6-4.0cm) LVDd5.1 (3.5-5.6cm)Aortic Root2.8 (2.0-3.7cm) PWd1.0 (0.7-1.1cm)Aortic Cusp Exc.1.9 (1.5-2.0cm) LVDs2.9 (2.5-4.0cm) PWs1.7 cm Normal left ventricular chamber size, systolic function and wall motion. Left ventricular ejection fraction estimated to be 60 %. No evidence of left ventricular hypertrophy. Anterior Echo-free space, may be due to pericardial fat or effusion. All other cardiac chamber sizes are within normal limits. Mild left atrial enlargement. Right cardiac chamber sizes are within normal limits. Focal aortic valve sclerosis with adequate cusp excursion. Mildly thickened mitral valve leaflets with normal excursion. Mild mitral annulus and aortic root calcification. Pulmonic valve not well visualized. Normal tricuspid valve structure. IVC dilated at 1.7 cm with physiologic collapse, estimated RAP is 10 mmHg. A color flow and spectral Doppler study was performed and revealed: Mild aortic regurgitation. Moderate mitral regurgitation. Mitral diastolic velocities suggest reduced left ventricular relaxation c/w mild LV diastolic dysfunction(Grade I). Mild tricuspid regurgitation. Tricuspid systolic velocities suggests peak right ventricular systolic pressure of 42 mmHg, consistent with mild pulmonary hypertension. No pulmonic regurgitation present.
[2017-08-15] MEDS: Amiodarone 200mg tab ORAL SCH (10:50)
[2017-08-15] MEDS: Lisinopril 2.5mg tab ORAL SCH (10:50)
--- NOTE | 2017-08-15 11:38 | GI Progress Note ---
Assessment/Plan Problems: (1) Acute hemorrhoid ICD Codes: K64.9 - Unspecified hemorrhoids SNOMED: 0041817, 34822783 (2) Constipated ICD Codes: K59.00 - Constipation, unspecified SNOMED: 18632927 (3) Gastrointestinal hemorrhage ICD Codes: K92.2 - Gastrointestinal hemorrhage, unspecified SNOMED: 56243861 (4) Abdominal pain ICD Codes: R10.9 - Unspecified abdominal pain SNOMED: 57014940 (5) GI bleed ICD Codes: K92.2 - Gastrointestinal hemorrhage, unspecified SNOMED: 22879414 Status: stable Status Narrative Discussed with Dr. Dexter. Assessment/Plan ok to dc GI stand point no recurrent bleed >> OB stool negative given recent GI procedures will hold procedure for now tolerating diet treat for hemorrhoids >> Anusol PRN The patient was seen and examined at bedside and all new and available data was reviewed in the patients chart. I agree with the above findings, impression and plan. (Patient seen earlier today. Signature stamp does not reflect patient encounter time.). - Angel Dexter MD Subjective Subjective ready to go home Objective Last 24 Hour Vital Signs Date Time Temp Pulse Resp B/P (MAP) Pulse Ox O2 Delivery O2 Flow Rate FiO2 08/15/17 10:50 146/75 08/15/17 08:16 98.2 71 20 146/75 95 Room Air 08/15/17 04:00 58 08/15/17 04:00 97.7 57 16 133/68 96 Room Air 08/15/17 00:00 97.5 64 20 142/79 97 Room Air 08/15/17 00:00 54 08/14/17 20:00 56 08/14/17 20:00 97.9 62 16 142/62 97 Room Air 08/14/17 16:00 55 08/14/17 15:47 97.7 58 20 143/75 95 Room Air 08/14/17 12:00 50 Intake and Output 08/15/17 08/16/17 19:00 07:00 Intake Total 250 ml Output Total 1150 ml Balance -900 ml Intake Oral 250 ml Output Urine Total 1150 ml Laboratory Tests Test 08/15/17 08:05 White Blood Count 6.2 K/UL (4.8-10.8) Red Blood Count 4.80 M/UL (4.70-6.10) Hemoglobin 10.6 G/DL (14.2-18.0) L Hematocrit 33.1 % (42.0-52.0) L Mean Corpuscular Volume 69 FL (80-99) L Mean Corpuscular Hemoglobin 22.0 PG (27.0-31.0) L Mean Corpuscular Hemoglobin Concent 31.9 G/DL (32.0-36.0) L Red Cell Distribution Width 13.0 % (11.6-14.8) Platelet Count 294 K/UL (150-450) Mean Platelet Volume 8.2 FL (6.5-10.1) Neutrophils (%) (Auto) 55.9 % (45.0-75.0) Lymphocytes (%) (Auto) 31.6 % (20.0-45.0) Monocytes (%) (Auto) 7.6 % (1.0-10.0) Eosinophils (%) (Auto) 4.3 % (0.0-3.0) H Basophils (%) (Auto) 0.6 % (0.0-2.0) Sodium Level 143 MMOL/L (136-145) Potassium Level 4.0 MMOL/L (3.5-5.1) Chloride Level 109 MMOL/L (98-107) H Carbon Dioxide Level 27 MMOL/L (21-32) Anion Gap 7 (5-15) Blood Urea Nitrogen 11 mg/dL (7-18) Creatinine 1.5 MG/DL (0.55-1.30) H Estimat Glomerular Filtration Rate mL/min (>60) Glucose Level 122 MG/DL (74-106) H Calcium Level 8.9 MG/DL (8.5-10.1) Height (Feet): 5 Height (Inches): 5.00 Weight (Pounds): 150 General Appearance: no apparent distress, alert Cardiovascular: normal rate Respiratory/Chest: normal breath sounds, no respiratory distress Abdominal Exam: normal bowel sounds, non tender, soft Genitourinary/Rectal: normal rectal exam Extremities: normal range of motion Soumya Mcclendon N.Valentin Aug 15, 2017 11:38 EARL DEXTER Aug 16, 2017 15:49
[2017-08-15 11:50] VITALS: BP 149/72
--- NOTE | 2017-08-15 13:57 | Pulmonology Progress Note ---
Assessment/Plan Problems: (1) Gastrointestinal hemorrhage (2) HTN (hypertension) Assessment/Plan h/h stable no more bleeding dc home with outpatient f/u\ GI cleared Subjective ROS Limited/Unobtainable: No Constitutional: Reports: no symptoms HEENT: Repors: no symptoms Allergies: Coded Allergies: No Known Allergies (Unverified , 01/25/17) Objective Last 24 Hour Vital Signs Date Time Temp Pulse Resp B/P (MAP) Pulse Ox O2 Delivery O2 Flow Rate FiO2 08/15/17 11:50 97.5 71 20 149/72 96 Room Air 08/15/17 10:50 146/75 08/15/17 08:16 98.2 71 20 146/75 95 Room Air 08/15/17 04:00 58 08/15/17 04:00 97.7 57 16 133/68 96 Room Air 08/15/17 00:00 97.5 64 20 142/79 97 Room Air 08/15/17 00:00 54 08/14/17 20:00 56 08/14/17 20:00 97.9 62 16 142/62 97 Room Air 08/14/17 16:00 55 08/14/17 15:47 97.7 58 20 143/75 95 Room Air Intake and Output 08/15/17 08/16/17 19:00 07:00 Intake Total 610 ml Output Total 1150 ml Balance -540 ml Intake Oral 610 ml Output Urine Total 1150 ml # Bowel Movements 1 General Appearance: WD/WN HEENT: normocephalic, atraumatic Respiratory/Chest: chest wall non-tender, lungs clear Cardiovascular: normal peripheral pulses, normal rate Abdomen: normal bowel sounds, soft, non tender Genitourinary: normal external genitalia Extremities: no cyanosis Skin: no rash 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 normal Lymphatic: no neck adenopathy Laboratory Tests 08/15/17 08:05: White Blood Count 6.2, Red Blood Count 4.80, Hemoglobin 10.6L, Hematocrit 33.1L , Mean Corpuscular Volume 69L, Mean Corpuscular Hemoglobin 22.0L, Mean Corpuscular Hemoglobin Concent 31.9L, Red Cell Distribution Width 13.0, Platelet Count 294, Mean Platelet Volume 8.2, Neutrophils (%) (Auto) 55.9, Lymphocytes (%) (Auto) 31.6, Monocytes (%) (Auto) 7.6, Eosinophils (%) (Auto) 4.3H, Basophils (%) (Auto) 0.6, Sodium Level 143, Potassium Level 4.0, Chloride Level 109H, Carbon Dioxide Level 27, Anion Gap 7, Blood Urea Nitrogen 11, Creatinine 1.5H, Estimat Glomerular Filtration Rate , Glucose Level 122H, Calcium Level 8.9 Current Medications Medications (Trade) Dose Ordered Sig/Timothy Route PRN Reason Start Time Stop Time Status Last Admin Dose Admin Acetaminophen (Tylenol) 650 mg Q4H PRN ORAL fever 08/12/17 14:45 09/11/17 14:44 Al Hydroxide/Mg Hydroxide (Mylanta II) 30 ml Q6H PRN ORAL dyspepsia 08/12/17 14:45 09/11/17 14:44 Amiodarone HCl (Cordarone) 200 mg EVERY 12 HOURS ORAL 08/12/17 21:00 09/11/17 20:59 08/15/17 10:50 Aspirin (Ecotrin) 81 mg DAILY ORAL 08/14/17 09:00 09/13/17 08:59 08/15/17 09:00 Dextrose (Dextrose 50%) STAT PRN IV Hypoglycemia 08/12/17 14:45 09/11/17 14:44 Dextrose/Sodium Chloride 1,000 ml @ 100 mls/hr Q10H IV 08/12/17 16:00 09/11/17 15:59 08/14/17 23:16 Diphenhydramine HCl (Benadryl) 25 mg Q6H PRN ORAL Itching/Pruritis 08/12/17 14:45 09/11/17 14:44 Docusate Sodium (Colace) 100 mg TWICE A DAY ORAL 08/13/17 18:00 09/12/17 17:59 08/14/17 08:49 Hydrocortisone (Anusol HC) 1 supp TWICE A DAY RECTAL 08/13/17 18:00 09/12/17 17:59 08/15/17 09:00 Lisinopril (Zestril) 5 mg DAILY ORAL 08/13/17 09:00 09/12/17 08:59 08/15/17 10:50 Morphine Sulfate (Morphine Sulfate) 2 mg Q4H PRN IVP severe Pain (Pain Scale 7-10) 08/12/17 14:45 08/19/17 14:44 Nitroglycerin (Ntg) 0.4 mg Q5M X 3 DOSES PRN SL Prn Chest Pain 08/12/17 14:45 09/11/17 14:44 Ondansetron HCl (Zofran) 4 mg Q6H PRN IVP Nausea & Vomiting 08/12/17 14:45 09/11/17 14:44 Polyethylene Glycol (Miralax) 17 gm BEDTIME ORAL 08/13/17 21:00 09/12/17 20:59 08/14/17 21:11 Ranitidine HCl (Zantac) 150 mg BEDTIME ORAL 08/12/17 21:00 09/11/17 20:59 08/14/17 21:11 Rivaroxaban (Xarelto) 15 mg QPM ORAL 08/14/17 16:30 09/13/17 16:29 08/14/17 17:19 Tamsulosin HCl (Flomax) 0.4 mg BEDTIME ORAL 08/12/17 21:00 09/11/17 20:59 08/14/17 21:11 Temazepam (Restoril) 15 mg HSPRN PRN ORAL Insomnia 08/12/17 14:45 08/19/17 14:44 YOLIE HECTOR Aug 15, 2017 13:57
[2017-08-15] MEDS ORDERED: ANUSOL HC1 SUPP RECTAL (13:58)
[2017-08-15] MEDS: D5NS 1,000 ML IV SCH (14:00)
[2017-08-15] MEDS ORDERED: D5NS 1000ml IV ONE (15:19)
--- NOTE | 2017-08-17 11:53 | Discharge Summary ---
Discharge Summary Hospital Course Date of Admission Aug 12, 2017 at 11:54 Date of Discharge Aug 15, 2017 at 15:20 Admitting Diagnosis LOWER G.I.BLEED HPI Quincy Henley is a 76 year old male who was admitted on Aug 12, 2017 at 11:54 for Lower Gastrointestinal Bleed Hospital Course dc summary #[id number] Discharge Medications New Medications: Hydrocortisone (Anucort-Hc) Y Supp 1 SUPP RECTAL TWICE A DAY for 30 Days, SUPP Continued Medications: Amiodarone Hcl* (Amiodarone Hcl*) 400 Mg Tablet 200 MG ORAL EVERY 12 HOURS, TAB Aspirin* (Aspir 81*) 81 Mg Tablet.dr 81 MG ORAL DAILY, TAB Lisinopril* (Lisinopril*) 2.5 Mg Tablet 5 MG ORAL DAILY, TAB 0 Refills Pantoprazole* (Protonix*) 40 Mg Tablet.dr 40 MG ORAL DAILY, TAB Rivaroxaban (Xarelto*) 10 Mg Tablet 10 MG ORAL DAILY, #30 TAB 0 Refills Tamsulosin Hcl (Tamsulosin Hcl*) 0.4 Mg Cap.er.24h 0.4 MG ORAL BEDTIME, CAP Discharge Condition Upon Discharge: stable Discharge Disposition Patient was discharged to Home (01) Discharge Diagnoses: Ari (Claudetteein),Erica BROWN Aug 17, 2017 11:53
--- NOTE | 2017-08-17 23:35 | Diagnostic Imaging Report ---
APPROVED REPORT CPT Code: 33546 Present Symptoms Comments: Hx of HTN BILATERAL: Imaging reveals a patent deep venous system bilaterally. There is no evidence of thrombus within the femoral, popliteal or tibial segments. The greater saphenous veins are also within normal limits. Doppler indicates normal spontaneous flow within these segments. Incidental finding: Enlarged bakers cyst noted at the left popliteal fossa level.
--- NOTE | 2017-08-18 07:30 | Discharge Summary ---
DATE OF ADMISSION: 08/12/2017 DATE OF DISCHARGE: 08/15/2017 REASON FOR ADMISSION: 76-year-old male with a history of coronary artery disease with stents, atrial fibrillation, hypertension, on Plavix and Xarelto presented to the emergency room with rectal bleeding that started 10 to 15 minutes prior to arrival. The patient noted bright red blood per rectum, moderate amount. He reported slight lightheadedness. No chest pain. No shortness of breath. Initially slight abdominal pain had resolved. No nausea. No vomiting. The patient had endoscopy and colonoscopy performed in past January which showed polyps and gastritis. Hemoglobin and hematocrit were stable. Hemoglobin -11.5, hematocrit -38.9. Blood pressure -190/95. The patient was admitted with diagnosis of GI hemorrhage and hypertension. HOSPITAL STAY: The patient was admitted. Initially kept NPO, started on the IV fluids. GI and cardiac consults were requested. [employer] Facilities Operator noted minimally elevated troponin. EKG revealed no acute ischemic changes. Normal sinus rhythm. Echocardiogram revealed preserved ejection fraction of 60%. No evidence of left ventricular hypertrophy, normal left ventricular chamber size, systolic function and wall motion. Right ventricular systolic pressure of 42 consistent with mild pulmonary hypertension. Also evidence of moderate mitral regurgitation. Initially antiplatelet agent and Xarelto were held as epr 3d designer, to determine the extent of the bleeding. GI seen and evaluated the patient and discussed with [employer] Facilities Operator. Per GI specialist, most likely the patient had hemorrhoidal bleeding, stool OB was negative. The patient had a recent colonoscopy and endoscopy which revealed gastritis. The patient started slowly on diet and advanced as tolerated. GI was treated hemorrhoids; patient was started on Anusol suppository . Bowel regimen was instituted. No further episodes of bleeding. Hemoglobin and hematocrit remained at the baseline. Anemia workup was consistent with anemia of chronic disease. Lipid panel revealed elevated LDL. The patient was counseled on cardiac, low fat, low cholesterol diet. The patient tolerated diet. No further episodes of bleeding. GI cleared for discharge and continue with Anusol for hemorrhoids as outpatient. Cardiology was not alarmed by mild elevation in troponin. Recommended outpatient cardiac followup since the patient was asymptomatic. No complaint of chest pain or shortness of breath. Sinus rhythm on the monitor. Xarelto and Plavix were resumed. EKG revealed no acute ischemic changes. Blood pressure was managed with calcium channel graham and ERENDIRA inhibitor and was stable. Pain management was provided. The patient had anemia of chronic disease. Hemoglobin and hematocrit were closely monitored and were stable., transfuse p.r.n. with goal to keep the hemoglobin above 8. Venous duplex of bilateral lower extremities was negative. Noted elevated TSH and T4 within normal limits, likely subclinical hypothyroidism. No need for thyroid supplement at this time, check thyroid function tests in one to two months. Creatinine down to 1.4 with hydration. Acute kidney injury was likely due to dehydration on chronic renal disease /insufficiency GI prophylaxis was provided. The patient was stable for discharge home . DISCHARGE MEDICATIONS: See medication reconciliation list. DISCHARGE INSTRUCTIONS: The patient was discharged home. Follow up with primary medical doctor. FINAL DIAGNOSES: 1. Gastrointestinal hemorrhage, likely hemorrhoidal bleeding. 2. Coronary artery disease with history of stent, LAD x2 on February 2017. 3. Paroxysmal atrial fibrillation. 4. Hypertension. 5. Acute renal failure on chronic renal insufficiency. 6. Elevated troponin. 7. Gastritis. 8. Anemia of chronic disease. 9. Subclinical hypothyroidism. 10. Moderate mitral regurgitation. 11. Mild pulmonary hypertension. Delores Pedraza M.D. Erica GeorgeMohawk Valley Health SystemDebbie NGrace DR: AUBRIE JOB#: [id number] CC: KHRIS
[2017-08-18 11:44] LABS: OTHERS PATHOLOGIST COMMENT
--- NOTE | 2017-08-23 08:38 | Cardiology Report ---
APPROVED REPORT EKG Measurement Heart [id number] Normal sinus rhythm Prolonged QT Abnormal ECG
== END 2017-08-15 15:20 | disposition home or self-care (01) | DRG 254 ==
LOC: EMR 10:11 → 2E 11:54 → EDBEDREQ 12:11
DX: K64.8 Other hemorrhoids (principal); N17.9 Acute kidney failure, unspecified; I48.0 Paroxysmal atrial fibrillation; I27.20 Pulmonary hypertension, unspecified; E86.0 Dehydration; D63.8 Anemia in other chronic diseases classified elsewhere; D50.0 Iron deficiency anemia secondary to blood loss (chronic); E02 Subclinical iodine-deficiency hypothyroidism; I12.9 Hypertensive chronic kidney disease with stage 1 through stage 4 chronic kidney disease, or unspecified chronic kidney disease; I25.10 Atherosclerotic heart disease of native coronary artery without angina pectoris; I34.0 Nonrheumatic mitral (valve) insufficiency; N18.9 Chronic kidney disease, unspecified; Z95.5 Presence of coronary angioplasty implant and graft; Z79.01 Long term (current) use of anticoagulants; Z79.02 Long term (current) use of antithrombotics/antiplatelets; Z86.010 Personal history of colon polyps; N40.0 Benign prostatic hyperplasia without lower urinary tract symptoms; K59.00 Constipation, unspecified
CPT/HCPCS: 36415; 80048; 80053; 80061; 82150; 82270; 82378; 82607; 82728; 82746; 82962; 83540; 83550; 83615; 83690; 83921; 84238; 84439; 84443; 84484; 85007; 85025; 85044; 85060; 85610; 85651; 85730; 86850; 86900; 86901; 93005; 93306; 93970; 99285

== ENCOUNTER 2018-01-16 07:36 | Outpatient (CLI) | payer MEDICARE, OTHER ==
[~2018-01-16 07:36] MED LIST changes: +ANUSOL HC1 SUPP RECTAL
[2018-01-16 08:19] LABS: BLOOD UREA NITROGEN 35 mg/dL (7-18); CREATININE 2.1 MG/DL (0.55-1.30)
[2018-01-16 11:26] LABS: APPEARANCE,URINE CLEAR; BILIRUBIN, URINE NEGATIVE (NEGATIVE); COLOR,URINE PALE YELLOW; GLUCOSE, URINE (UA) NEGATIVE (NEGATIVE); KETONES,URINE NEGATIVE (NEGATIVE); LEUKOCYTE ESTERASE ,URINE NEGATIVE (NEGATIVE); NITRITE,URINE NEGATIVE (NEGATIVE); PH,URINE 6 (4.5-8.0); PROTEIN,URINE NEGATIVE (NEGATIVE); UROBILINOGEN,URINE NORMAL MG/DL (0.0-1.0)
--- NOTE | 2018-01-16 15:56 | Diagnostic Imaging Report ---
Indication: Abdominal pain, suspected history of urinary stone disease, weight loss Technique: Spiral acquisitions obtained through the abdomen and pelvis. Patient ingested oral contrast. No IV contrast utilized, due to renal insufficiency.. Multiplanar reconstructions were generated. Total dose length product 679 mGycm. CTDIvol(s) 13 mGy. Dose reduction achieved using automated exposure control Comparison: 01/30/2017 Findings: No renal or ureteral calculi are demonstrated. No evidence of hydronephrosis or hydroureter. Lack of IV contrast limits assessment of the renal parenchyma. Multiple right renal cysts are again demonstrated. Lack of IV contrast limits assessment of the other solid organs. The liver, gallbladder, bile ducts, pancreas, spleen, adrenals are unremarkable. No retroperitoneal or mesenteric mass or adenopathy. No pelvic mass or adenopathy. Bladder is mildly distended. The prostate is enlarged, as previously. Dense stool slightly distends the rectum. No evidence of diverticulosis or diverticulitis. The appendix is normal. No small bowel distention. No free or loculated intraperitoneal air or fluid is demonstrated. There is a small sliding-type hiatal hernia. There is a small fat-containing right inguinal hernia The included lung bases demonstrate minimal scarring or atelectasis. The bones demonstrate degenerative spondylosis changes. Impression: Limited assessment of solid organs, due to inability to give IV contrast Mild rectal distention by stool, early fecal impaction a possibility No acute abnormality otherwise. Specifically, no evidence of urinary stone disease or obstructive uropathy Prostatomegaly Other findings as noted, including small sliding-type hiatal hernia,, small fat-containing right inguinal hernia minimal basilar pulmonary proximal scarring or atelectasis, degenerative spondylosis The CT scanner at [facility] is accredited by the [employer] and the scans are performed using protocols designed to limit radiation exposure to as low as reasonably achievable to attain images of sufficient resolution adequate for diagnostic evaluation.
== END 2018-01-16 09:36 | disposition home or self-care (01) ==
LOC: CAT 07:36
DX: R10.9 Unspecified abdominal pain (principal); R63.4 Abnormal weight loss; N40.0 Benign prostatic hyperplasia without lower urinary tract symptoms; N20.0 Calculus of kidney; K44.9 Diaphragmatic hernia without obstruction or gangrene; K40.90 Unilateral inguinal hernia, without obstruction or gangrene, not specified as recurrent; M47.9 Spondylosis, unspecified
CPT/HCPCS: 36415; 74176; 81001; 82565; 84520

== ENCOUNTER 2018-02-22 07:14 | Day surgery (SDC) | payer MEDICARE, OTHER ==
--- NOTE | 2018-02-21 22:49 | Pre-Procedure Note/Attestation ---
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 I attest that, if there was a reasonable possibility of needing a blood transfusion, the patient (or the patient's legal telesales representative) was given the [place] Department [employer] standardized written summary, pursuant to the [place] Blood Safety Act ([place] Health and Safety Code # 1645, as amended). I attest that I re-evaluated the patient just prior to the surgery and that there has been no change in the patient's H&P, except as documented below: Ford Harkins MD Feb 21, 2018 22:49
[2018-02-22] VITALS (9 sets, daily range): BP systolic 115–150; BP diastolic 55–73
[~2018-02-22] VITALS: Ht 160 cm; Wt 64.9 kg
[~2018-02-22 07:14] MED LIST changes: +ATORVASTATIN CA40 MG ORAL; +ILEVRO1.7 ML OP; +ISOSORBIDE MONO60 M1 PO; +LEVOTHYROXINE50 MCG ORAL; +Pred Forte 1% Opth Susp 1ml RIGHT EYE ONE; +VIT D PO
[2018-02-22] MEDS: Phenylephrine 10% Opth Soln 5ml RIGHT EYE SCH ×3 (07:47→08:16)
[2018-02-22] MEDS: Tropicamide 1% Opth 15ml Soln RIGHT EYE SCH ×3 (07:48→08:16)
[2018-02-22] MEDS: Cyclopentolate 1% Opth Sol 2ml RIGHT EYE SCH ×3 (07:50→08:17)
[2018-02-22] MEDS: Ciprofloxacin Opth Soln 2.5ml RIGHT EYE SCH ×3 (07:50→08:17)
[2018-02-22] MEDS: Akten 3.5% 1ml Btl RIGHT EYE SCH ×3 (07:52→08:17)
--- NOTE | 2018-02-22 10:57 | Immediate Post-Op Evaluation ---
Immediate Post-Op Evalulation Immediate Post-Op Evalulation Procedure: Right ctaract extraction with IOL Date of Evaluation: Feb 22, 2018 Time of Evaluation: 11:57 IV Fluids: 400 Blood Products: 0 Estimated Blood Loss: 0 Urinary Output: 0 Blood Pressure Systolic: 152 Blood Pressure Diastolic: 81 Pulse Rate: 52 Respiratory Rate: 16 O2 Sat by Pulse Oximetry: 99 Temperature (Fahrenheit): 97.2 Pain Score (1-10): 0 Nausea: No Vomiting: No Complications 0 Patient Status: awake, reacts, patent, none Hydration Status: adequate Drug: N/A TRINITY PEREIRA M.D. Feb 22, 2018 10:57
--- NOTE | 2018-02-22 10:57 | Anethesia Preoperative Eval ---
Anesthesia Pre-op PMH/ROS General Date of Evaluation: Feb 22, 2018 Anesthesiologist: Alonso ASA Score: ASA 3 Mallampati Score Class I : Soft palate, uvula, fauces, pillars visible Class II: Soft palate, uvula, fauces visible Class III: Soft palate, base of uvula visible Class IV: Only hard plate visible Mallampati Classification: Class II Surgeon: Shahana Diagnosis: Right cataract Surgical Procedure: Right cataract extraction with IOL Anesthesia History: none Family History: no anesthesia problems Allergies: Coded Allergies: No Known Allergies (Unverified , 01/25/17) Medications: see eMAR Past Medical History Cardiovascular: Reports: HTN, CAD, other - HLD; Denies: AL, valve dz, arrhythmia Pulmonary: Denies: asthma, COPD, BUR[place], other Gastrointestinal/Genitourinary: Reports: GERD, CRI, other - gastritis, bph; Denies: ESRD Neurologic/Psychiatric: Denies: dementia, CVA, depression/anxiety, TIA, other Endocrine: Reports: hypothyroidism; Denies: DM, steroids, other HEENT: Denies: cataract (L), cataract (R), glaucoma, [place] (L), [place] (R), other Hematology/Immune: Denies: anemia, DVT, bleeding disorder, other Musculoskeletal/Integumentary: Reports: OA; Denies: RA, DJD, DDD, edema, other PSxH Narrative: UHR Anesthesia Pre-op Phys. Exam Physician Exam Last Vital Signs Date Time Temp Pulse Resp B/P (MAP) Pulse Ox O2 Delivery O2 Flow Rate FiO2 02/22/18 07:52 98.7 57 18 150/73 99 Room Air 98.7 Constitutional: NAD Cardiovascular: RRR Respiratory: CTA Airway Exam Mallampati Score: Class II MO: full ROM: full Teeth: intact Anesthesia Pre-op A/P Labs see chart Studies Pre-op Studies: EKG - sr Risk Assessment & Plan Assessment: ASA III Plan: MAC Status Change Before Surgery: No Pre-Antibiotics Drug: N/A TRINITY PEREIRA M.D. Feb 22, 2018 10:57
[2018-02-22] MEDS ORDERED: LR 1000ml 1,000 ML IVLG SCH (10:58)
--- NOTE | 2018-02-22 10:58 | 48 Hour Post Anesthesia Eval ---
Post Anesthesia Evaluation Procedure: Right ctaract extraction with IOL Date of Evaluation: Feb 22, 2018 Airway: patent Nausea: No Vomiting: No Pain Intensity: 0 Hydration Status: adequate Cardiopulmonary Status: at baseline Mental Status/LOC: patient returned to baseline Post-Anesthesia Complications: 0 Follow-up care needed: ready to discharge TRINITY PEREIRA M.D. Feb 22, 2018 10:58
[2018-02-22] MEDS ORDERED: LR 1000ml ONE (11:00)
[2018-02-22] MEDS ORDERED: Propofol 200mg/20ml IV ONE (11:00)
[2018-02-22] MEDS ORDERED: Midazolam 2mg/2ml Inj ONE (11:00)
[2018-02-22] MEDS ORDERED: Lidocaine 1% MPF 10mg/ml 5ml ONE ×2 (11:00→15:05)
[2018-02-22] MEDS ORDERED: Sterile Water Irrig 1000ml IRRIG ONE (11:00)
[2018-02-22] MEDS ORDERED: fentaNYL 100 mcg/2 mL IV ONE (11:00)
[2018-02-22] MEDS ORDERED: DiphenhydrAMINE 50mg/ml Inj IVP PRN (11:00)
[2018-02-22] MEDS ORDERED: NS Irrig 1000ml ONE (11:00)
--- NOTE | 2018-02-22 12:05 | Discharge Instructions ---
Discharge Instructions Discharge Instructions Follow Up Orders Wear eye shield at all times except to place eye drops Continue preoperative eye drops Followup in Dr Harkins's office tomorrow at 2:30 For Congestive Heart Failure Reminder Report to your physician any weight gain of 5 pounds or more in one week. Ford Harkins MD Feb 22, 2018 12:05
[2018-02-22] MEDS ORDERED: Sodium Hyaluronate 10 mg/ml 0.85ml ONE (12:07)
[2018-02-22] MEDS ORDERED: Povidone-Iodine 5% opth solution ONE (12:07)
[2018-02-22] MEDS ORDERED: BSS 15ml BTL ONE (12:07)
[2018-02-22] MEDS ORDERED: BSS 500ml btl ONE (12:07)
--- NOTE | 2018-02-22 12:07 | Brief Operative Note ---
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
[2018-02-22] MEDS ORDERED: EPINEPHrine 1mg/1ml Amp ONE (15:05)
[2018-02-22] MEDS ORDERED: Lidocaine 4% Amp ONE (15:05)
[2018-02-22] MEDS ORDERED: Dexamethasone 4mg/ml vial ONE (15:05)
[2018-02-22] MEDS ORDERED: Maxitrol Opth Oint 3.5gm ONE (15:05)
[2018-02-22] MEDS ORDERED: Tetracaine 0.5% Opth 4ml Soln ONE (15:05)
--- NOTE | 2018-02-24 19:30 | Operative Note - Dictated ---
DATE OF OPERATION: 02/22/2018 SURGEON: Ford Harkins M.D. [employer]EL [employer] SURGEON: None. ANESTHESIOLOGIST: India Nichols M.D. ANESTHESIA: Local/standby/monitored anesthesia care. PREOPERATIVE DIAGNOSIS: Dense cataract, right eye. POSTOPERATIVE DIAGNOSIS: Dense cataract, right eye. PROCEDURE: 1. Phacoemulsification of cataract, right eye. 2. Placement of posterior chamber intraocular lens, right eye (model [employer] ZCBOO, power 25.0). SPECIMENS: None. COMPLICATIONS: None. INDICATIONS FOR SURGERY: The patient has had the painless progressive decrease in visual acuity in the right eye secondary to cataract. The patient understands the risks of surgery including infection, bleeding, need for further surgery, loss of vision, no improvement in vision, loss of the eye, loss of life, glaucoma, retinal detachment, understands these risks and elects to proceed with surgery. FINDINGS: The patient had a very dense +4 nuclear sclerotic cataract as well as +2 cortical cataract. OPERATIVE NOTE: After informed consent was obtained, the patient was brought into the operating room and placed in supine position. Cardiac and respiratory monitors were attached. A time-out was performed and all criteria were met and everyone agreed. The right eye was then draped and prepped in sterile manner for ocular surgery. A lid speculum was placed in the eye. A 1% lidocaine preservative-free was injected at the 9 o'clock limbus. A conjunctiva peritomy from approximately 8:30 to 9:30 was made and dissected posteriorly. Hemostasis was maintained with bipolar cautery. A 2.8 mm limbal incision was made centered at 9 o'clock and dissected anteriorly. A paracentesis was made at 12 o'clock. Shugarcaine was injected into the anterior chamber followed by Healon. The anterior chamber was then entered using a 2.8 mm keratome. The anterior capsulorrhexis was then performed. Hydrodissection and hydrodelineation of the lens was then performed. The lens was then phacoemulsified using a divide and conquer four-quadrant technique. Residual cortical material was then aspirated. Note that the cataract was very dense and going to power setting of 3 on the phaco unit but the entire capsule was intact during the whole procedure. After the cortical material was aspirated, Healon was injected into the anterior chamber and capsular bag. The lens was taken from its package, placed into the cartridge and the tip of the cartridge was placed through the limbal wound and the lens was injected into the capsular bag and centered nicely with a [place] hook. Healon was then aspirated from the anterior chamber and capsular bag. The limbal wound and paracentesis were hydrated and closed in addition one 10-0 nylon interrupted suture was placed through the limbal wound and knot was rotated and buried. All wounds were checked and found to be watertight. The conjunctiva was then closed with forceps cautery. The lid speculum and drapes were removed from the eye and a drop of diluted Betadine was placed on the surface and irrigated. Drops of ciprofloxacin and Pred Forte were applied to the eye followed by Maxitrol ointment and then shield. Prior to taking the drapes off and removed in this fashion, lens was visually inspected and found to have both haptics and the optic in the capsular bag and positioned with 180 degree meridian. The tip of the cartridge was placed through the limbal wound and once this was injected into the capsular bag and centered nicely. There was a small rent at approximately 8 o'clock just in the anterior capsule that did not go pass the equator but is just stayed mainly anteriorly. After the lens was injected into the capsular bag, Healon was aspirated from the anterior chamber and capsular bag and the lens was positioned such that it was in the approximate 11/12 o'clock to 5 o'clock and 6 o'clock meridian, this way the both haptics and the optic were in the capsular bag. This was visually inspected and found to be true. After all the Healon was aspirated out, the limbal wound and the paracentesis wounds were hydrated closed. One 10-0 nylon interrupted suture was also placed through the limbal wound and the knot was rotated and buried. All wounds were checked and found to be watertight. The conjunctiva was then closed with forceps cautery. Again the intraocular lens was inspected and both haptics and the optic were within the capsular bag. The lid speculum and drapes removed from the eye and drops of Pred Forte and ciprofloxacin were applied to the eye followed by Maxitrol ointment and shield. The patient tolerated the procedure well and left the operating room in awake, alert, and stable condition. Note, care was taken during the entire procedure not to touch the endothelium also. Ford Rosales Harkins DR: Patricia JOB#: [id number] CC:
== END 2018-02-22 13:40 | disposition home or self-care (01) ==
LOC: SUR 07:14
DX: H25.11 Age-related nuclear cataract, right eye (principal); H25.011 Cortical age-related cataract, right eye; I25.10 Atherosclerotic heart disease of native coronary artery without angina pectoris; K21.9 Gastro-esophageal reflux disease without esophagitis; Z82.49 Family history of ischemic heart disease and other diseases of the circulatory system; I11.9 Hypertensive heart disease without heart failure; E78.5 Hyperlipidemia, unspecified; I12.9 Hypertensive chronic kidney disease with stage 1 through stage 4 chronic kidney disease, or unspecified chronic kidney disease; N18.9 Chronic kidney disease, unspecified; E03.9 Hypothyroidism, unspecified; M19.90 Unspecified osteoarthritis, unspecified site
CPT/HCPCS: 66984; J0171; J1100; J2250; J2704; J3010; J7120; V2632; 94003; 94150